=== PATIENT | male | born 1950 | race Caucasian/White ===

== ENCOUNTER 2024-11-13 13:31 | Outpatient (AMB) | payer MEDICARE, SELFPAY ==
--- OUTSIDE RECORDS SUMMARY | 2023-12-29 06:30 | XMS_ITS ---
Author Name [facility] [facility] [place] Address [address] [place] [address] Care Team Providers Care Shutdown Coordinator Name Role Phone NATALIE OROZCO Primary Care Provider Jed martinez Insurance Providers: All historical and current Section Date Range: From patient's date of to the date document was created. This section includes the names of all active insurance providers for the patient. Insurance Provider Type of Coverage Plan Name Start of Policy Coverage End of Policy Coverage Group Number Member ID Insurance Provider's Telephone Number Policy Lang's Name Patient's Relationship to Policy Lang MEDICARE (WNR) MEDICARE (M) PART A Nov 20, 2017 PART A [id number] DALTON ROSE OMAS PATIENT MEDICARE (WNR) MEDICARE (M) PART B Nov 20, 2017 PART B [id number] MILTON, OMAS PATIENT Selected Encounter This section includes the information on record at [place] for the Encounter. Date/Time Encounter Type Encounter Description Reason Provider Source Dec 29, 2023 10:30 AM COMPRE OPH EXAM EST PT 1/> OPTOMETRY ICD-10-CM E11.9 Type 2 diabetes mellitus without complications KAYLEIGH WILLIAM Encounter Template Text not used by [place] Assessments - Encounter Diagnoses This section includes the primary and secondary diagnoses documented for the Encounter. Date/Time Primary/Secondary Diagnosis Diagnosis Name Provider Source Dec 29, 2023 10:13 AM PRIMARY Type 2 diabetes mellitus without complications KRISTOFERRICARDOPopeyeKAYLEIGH Martinez [facility] Dec 29, 2023 10:13 AM SECONDARY Presence of intraocular lens KAYLEIGH WILLIAM [facility] Plan of Treatment: Future Appointments (+ 6 months) and Future Tests (+/- 45 days) The Plan of Treatment section includes future care activities for the patient from all [place] treatmentfacilities. This section includes future appointments and future orders which are active, pending or scheduled. Future Appointments This section includes appointments that were scheduled to occur 6 months from the date of the Encounter, up to a maximum of 20 appointments. The data comes from all [place] treatment facilities. Appointment Date/Time Appointment Type Appointme nt Facility Name Jan 10, 2024 08:30 AM AMBULATORY - MEDICINE [facility] Mar 31, 2024 10:45 AM AMBULATORY - MEDICINE [facility] Jun 13, 2024 10:00 AM AMBULATORY MEDICINE [facility] Jun 23, 2024 03:30 PM AMBULATORY - MEDICINE [facility] Lab Results: +/- 30 days of the encounter This section includes the Chemistry and Hematology Lab Results on record with [place] for the patient. Radiology Reports and Pathology Reports are provided separately, in subsequent sections. Lab Results This section contains the Chemistry/Hematology Results that were resulted 30 days before or 30 daysafter the date of the Encounter. Date/Time Source Result Type Result - Unit Interpretation Reference Range Specimen Type Comment Nov 30, 2023 11:16 AM [place] COVID-19 FLU/RSV DIAGNOSTIC PANEL NASOPHARYNX Specimen Type: NASOPHARYNX Comment: This test is authorized for emergency use only. False negative results may occur if virus is present at levels below the analytical limit of detection.Negat dustin results do not preclude SARS-CoV-2, influenza or RSV infection and should not be used as the sole basis for treatment or other patient management decisions.Cephe id FLUVID: HCPs: https://www.fda .gov/media/7622 35/download. Patients: https://www.fda .gov/media/9215 36/download Ordering Provider: NATALIE OROZCO Report Released Date/Time: Nov 30, 2023 11:08 AM Reporting Lab: [address] [address] Performing Lab: [address] [address] COVID-19 PCR (FLUVID) POSITIVE HH NEGATIVE FLU A PCR (FLUVID) NEGATIVE FLU B PCR (FLUVID) NEGATIVE RSV PCR (FLUVID) NEGATIVE Nov 30, 2023 11:16 AM [place] SARS-COV-2 VARIANT SEQ PNL([facility]) NASOPHARYNX Specimen Type: NASOPHARYNX Comment: -Pangolin version 4.3.1 (data version ) -Nextclade version 3.8.2 (data version 2023-10-06) https://www.cdc.gov/coronavirus/2019-ncov/cases-updates/variant- surveillance/variant-info.html The [employer]ctors SARS CoV 2 No Chains Research Assay-GX is a next-generation sequencing (NGS) assay that determines the complete genome sequence of the SARS-CoV-2 virus. The assay contains variant-tolerant primers to broaden and improve the coverage for variant detection and increase the sensitivity of the panel to enable detection from lower viral titer samples. The assay is run on the PriceMatch Sequencer, which performs automated library preparation, sequencing, analysis, and reporting. The sequence analysis includes determination of viral phylogenetic lineage by comparison to the reference strain Wu[place]-Hu-1, GenBank: [id number]. Sequence determination may not be possible owing to inadequate quantity or quality of the viral RNA in the original specimen. Sequencing will not be attempted if the SARS-CoV-2 PCR assay result has a Ct > 30. Note that phylogenetic lineage assignment in some cases may change management coordinator time for the same sequence as the virus continues to evolve and new sub lineages are created. The reported result will reflect the lineage assignment only at the time of initial sequence determination. This test was developed, and its performance characteristics determined by the [facility], which is certified under the Clinical Laboratory Improvement Amendments (CLIA) as qualified to perform high complexity clinical laboratory testing. This test is validated for clinical use at [facility] and should not be regarded as investigational or for research. The FDA does not require this test to go through premarket FDA review, and therefore it has not been cleared or approved by the FDA. This report was reviewed and approved by the on-service pathologist. Ordering Provider: NATALIE OROZCO Report Released Date/Time: Jan 13, 2024 09:27 AM Reporting Lab: [facility] [address] [facility] [address] Performing Lab: [facility] [address] [facility] [address] SARS-COV-2 Lineage([facility]) KP.3.1.1 SARS-COV-2 Clade([facility]V) 24C (Omicron) Social History: Smoking Status (Most current) and Tobacco Use (All prior to encounter date) This section includes the most current, and the historical, smoking and tobacco- related health factors from the [place] facility where the Encounter took place. Current Smoking Status This section includes the most current smoking, or tobacco-related health factor, from the [place] facility where the Encounter took place. Date/Time Current Smoking Status Comment [facility] Oct 28, 2020 03:45 PM VA-TOBACCO FORMER USER [facility] Tobacco Use History This section includes a history of the smoking, or tobacco-related health factors, that were collected on or before the date of the Encounter. The data comes from the [place] facility where the Encounter took place. Date/Time Smoking Status/Tobac co Use Comment Facility Oct 28, 2020 03:45 PM VA-TOBACCO QUIT 15 YRS OR MORE [facility] Aug 25, 2016 11:16 AM QUIT TOBACCO USE > 7 YEARS AGO 03/22/74 [facility] Nov 15, 2001 02:54 PM QUIT TOBACCO USE > 7 YEARS AGO quitted 20 years ago [facility] Nov 15, 2001 02:36 PM HISTORY OF SMOKING Quit in 1974 [facility] Nov 15, 2001 02:36 PM QUIT TOBACCO USE > 7 YEARS AGO Quit in 1974 [facility] Advance Directives: All historical and current Section Date Range: From patient's date of to the date document was created. This section includes ALL of a patient's completed or amended [place] Advance and Rescinded Directives. The entries below indicate that a directive exists for the patient, but an actual copy is not included with this document. The data comes from all [place] facilities. Date Advance Directives Provider Source Aug 27, 2016 ADVANCE DIRECTIVE CARSON OLSON Encounter Notes: All associated encounter notes This section contains the clinical notes associated to the Encounter. Date/Time Encounter Note(s) Provider Source Dec 29, 2023 08:24 AM OPTOMETRY NOTE: LOCAL TITLE: OPTOMETRY NOTE(T) STANDARD TITLE: OPTOMETRY NOTE DATE OF NOTE: DEC 29, 2023@08:24 ENTRY DATE: DEC 29, 2023@08:24:05 AUTHOR: BERNARDO WILLIAM COSIGNER: URGENCY: STATUS: COMPLETED Active Problems: Active Problem Chronic kidney disease N18.9 02/10/2021 NATALIE OROZCO History of hepatitis C R69. 02/14/2018 NATALIE OROZCO Primary Care Physician R69. 02/17/2017 NATALIE OROZCO Microalbuminuria due to type 2 diab 08/27/2016 NATALIE OROZCO Onychomycosis of toenails R69. 08/27/2016 NATALIE OROZCO Diabetic retinopathy R69. 08/27/2016 NATALIE OROZCO History of tobacco use R69. 08/27/2016 NATALIE OROZCO Colonoscopy Screening R69. 08/27/2016 NATALIE OROZCO Vitamin D deficiency E55.9 09/17/2016 NATALIE OROZCO Coronary artery disease I25.10, Ons 08/06/2021 NATALIE OROZCO Automatic implantable cardiac defib 08/27/2016 NATALIE OROZCO Ischemic cardiomyopathy R69. 08/27/2016 NATALIE OROZCO History of male erectile disorder N 08/27/2016 NATALIE OROZCO Hypertension I10. 08/27/2016 NATALIE OROZCO Diabetes mellitus type 2 E11.8 11/17/2016 NATALIE OROZCO Mixed hyperlipidemia E78.2 08/27/2016 NATALIE OROZCO Obesity E66.9 09/17/2016 NATALIE OROZCO Medications ([facility]): Active Outpatient Medications (including Supplies): Active Non-VA Medications Status 1) Non-VA APIXABAN 5MG TAB 5MG BY MOUTH EVERY 12 HOURS ACTIVE 2) Non-VA ASPIRIN 81MG EC TAB 81MG BY MOUTH EVERY DAY ACTIVE 3) Non-VA ATORVASTATIN CALCIUM 80MG TAB 40MG BY MOUTH AT ACTIVE BEDTIME 4) Non-VA CHOLECALCIF 25MCG (D3-1,000UNIT) TAB 25MCG BY ACTIVE MOUTH ONCE DAILY 5) Non-VA DULAGLUTIDE 1.5MG/0.5ML INJ PEN 1.5MG ACTIVE SUBCUTANEOUSLY ONCE A WEEK 6) Non-VA FENOFIBRATE 54MG TAB 54MG BY MOUTH ACTIVE 7) Non-VA FISH OIL 500MG DHA/EPA CAP,ORAL 1200MG BY ACTIVE MOUTH ONCE DAILY 8) Non-VA GLIPIZIDE 5MG TAB 5MG BY MOUTH TWICE DAILY ACTIVE 9) Non-VA KETOCONAZOLE 2% CREAM THIN LAYER TOPICALLY ACTIVE TWICE DAILY 10) Non-VA METFORMIN HCL 1000MG TAB 1000MG BY MOUTH TWICE ACTIVE DAILY 11) Non-VA METOPROLOL SUCCINATE 50MG SA TAB 50MG BY MOUTH ACTIVE ONCE DAILY 12) Non-VA OTHER CAP/TAB IMMUNOTHERAPY MONTHLY ACTIVE 13) Non-VA SACUBITRIL 49MG/VALSARTAN 51MG TAB 1 TABLET BY ACTIVE MOUTH TWICE DAILY Allergies: Patient has answered NKA S: 73-year-old male is in for comprehensive exam with a history of type 2 diabetes without ocular manifestations and CE with PCL OU. He wears reading glasses only now and denies any eye injury or disease since his last exam. KAYA: 11/27/2021 (-) Pain: (-) REAL: (-) Diplopia: (-) Flashes: (-) Floaters: (-) Amaurosis Fugax/Tia's: (-) Eye Injury: (+) Eye Surgery: CE with PCIOL OD (-) TBI O: Visual acuity without correction was 20/20 slow both eyes. Pupils were equal and round and reactive to light with no afferent defect. Extraocular muscles were intact and facial confrontation mann were full. Lids and lashes were clear both eyes with verruca at 530 left lower lid. Corneas and conjunctiva were clear both eyes. Anterior chambers were deep clear and quiet with open angles. Iris was flat both eyes without neovascularization. Posterior chamber lenses were in place and clear OU. Subjective Refraction: OD: pl - 0.50 x 090 20/20 OS: PL sphere 20/20 slow Add: + 2.25 sph 20/20 Intraocular pressures at 10 AM were 14 mmHg OU. Dilating Drops: 1GTT 1 % Tropicamide OU & 1GTT 2.5% Phenylephrine OU (Pt. ed. on side effects, dilation warning given and verbal consent obtained) Patient advised not to drive if they feel they have any symptoms which could affect their ability to drive safely. Patient advised not to engage in any activities which could put themselves or others at risk if they feel they have any symptoms which could affect their ability to perform those activities safely. Vitreous was clear OU. Approximately 40% horizontal and vertical cupping was seen OU with healthy rims and margins and no neovascularization. Normal pigmentary architecture of the macula was seen without lipid or edema. Small intraretinal hemorrhage was seen adjacent to the fovea OS. A two third artery to vein ratio was seen. Retinal peripheries were intact in all quadrants OU. A: Small hemorrhage adjacent to the fovea OS. History of diabetes with mild nonproliferative diabetic retinopathy. Pseudophakia OU. P: Ordered new KYO Ordered consult to [facility] for OS hemorrhage. The patient will return in 12 months or sooner if any problems arise. [place] Education: After discussion and answering all 's questions, demonstrated and verbalized understanding of diagnosis and treatment. Yes [x] No [ ] Patient Education: Diabetes: Patient was educated regarding diabetes and related ocular complications including retinopathy and cataract formation as well as other related systemic complications. The importance of good blood sugar control, blood sugar testing as recommended by their PCP and the importance of timely follow up were all emphasized. Medication Reconciliation: Outpatient: Has the patient been taking medications as documented in the EMLR? YES: The patient has been taking medications as documented in the EMLR. Essential Medication List for Review used to complete this medication reconciliation. INCLUDED IN THIS LIST: Alphabetical list of active outpatient prescriptions dispensed from this [facility] (local) and dispensed from another [facility] or [facility] facility (remote) as well as inpatient orders (local, pending and active), local clinic medications, locally documented non-VA medications, and local prescriptions that have or been discontinued in the past 90 days. - All changes in medications, including all non-VA/Herbal/OTC medications were entered into CPRS. - If there were any medications the patient should no longer take, they were discontinued. - The patient/caregiver was instructed to update this list, discard old lists, and take this list to the next appointment, whether with a VA or non-VA provider. /tommy/ BERNARDO WILLIAM OD STAFF TRANSITIONAL STUDIES INSTRUCTOR Signed: 12/29/2023 10:58 BERNARDO WILLIAM CNTRL [facility]
--- OUTSIDE RECORDS SUMMARY | 2024-06-13 06:00 | XMS_ITS | Encounter Summary ---
Author Name [facility] [facility] [place] Address [address] [place] [id number] Care Team Providers Care Conservation Specialist Name Role Phone NATALIE OROZCO Primary Care Provider Unavailabl e Insurance Providers: All historical and current Section [...] PART A Nov 20, 2017 PART A [id number] [place] PATIENT MEDICARE (WNR) MEDICARE (M) PART B Nov 20, 2017 PART B [id number] [place] ROSE OMAS PATIENT Selected Encounter This section includes the information on record at [place] for the Encounter. Date/Time Encounter Type Encounter Description Reason Provider Source Jun 13, 2024 10:00 AM OFFICE O/P EST LOW 20 MIN PRIMARY CARE/MEDICINE ICD-10-CM I10 Essential (primary) hypertension NATALIE OROZCO Encounter Template Text not used by [facility] Assessments - Encounter Diagnoses This section includes the primary and secondary diagnoses documented for the Encounter. Date/Time Primary/Secondary Diagnosis Diagnosis Name Provider Source Jun 13, 2024 10:13 AM PRIMARY Essential (primary) hypertension NATALIE OROZCO [facility] Plan of Treatment: Future Appointments (+ 6 months) and Future Tests (+/- 45 days) The Plan of Treatment section includes future care activities for the patient from all [place] [facility]. This section includes future appointments and future orders which are active, pending or scheduled. Future Appointments This section includes appointments that were scheduled to occur 6 months from the date of the Encounter, up to a maximum of 20 appointments. The data comes from all [place] treatment facilities. Appointment Date/Time Appointment Type Appointme nt Facility Name Jun 23, 2024 03:30 PM AMBULATORY - MEDICINE [facility] Jul 13, 2024 09:00 AM [facility] Social History: Smoking Status (Most current) and Tobacco Use (All prior to encounter date) This section includes the most current, and the historical, smoking and tobacco- related health factors from the [place] facility where the Encounter took place. Current Smoking Status This section includes the most current smoking, or tobacco-related health factor, from the [place] facility where the Encounter took place. Date/Time Current Smoking Status Comment Facil ity Jun 13, 2024 10:00 AM [place]-TOBACCO NEVER USED CIGARETTES [facility] Tobacco Use History This section includes a history of the smoking, or tobacco-related health factors, that were collected on or before the date of the Encounter. The data comes from the [place] facility where the Encounter took place. Date/Time Smoking Status/Tobacco Use Comment F acility Jun 13, 2024 10:00 AM [place]-TOBACCO NEVER USED OTHER TYPE [facility] Jun 14, 2023 10:00 AM VA-TOBACCO FORMER USER [facility] Jun 14, 2023 10:00 AM [place]-TOBACCO QUIT 15 YRS OR MORE [facility] Jun 18, 2022 11:00 AM VA-TOBACCO FORMER USER [facility] Jun 18, 2022 11:00 AM VA-TOBACCO QUIT 15 YRS OR MORE [facility] Oct 15, 2017 11:45 AM VA-TOBACCO FORMER USER [facility] Oct 15, 2017 11:45 AM [place]-TOBACCO QUIT 15 YRS OR MORE [facility] Advance Directives: All historical and current Section Date Range: From patient's date of to the date document was created. This section includes ALL of a patient's completed or amended [place] Advance and Rescinded Directives. The entries below indicate that a directive exists for the patient, but an actual copy is not included with this document. The data comes from all [place] facilities. Date Advance Directives Provider Source Aug 27, 2016 ADVANCE DIRECTIVE CARSON OLSON Encounter Notes: All associated encounter notes This section contains the clinical notes associated to the Encounter. Date/Time Encounter Note(s) Provider Source Jun 13, 2024 10:08 AM PREVENTIVE MEDICIN E NURSING NOTE: LOCAL TITLE: CLINICAL REMINDERS/NURSING STANDARD TITLE: PREVENTIVE MEDICINE NURSING NOTE DATE OF NOTE: JUN 13, 2024@10:08 ENTRY DATE: JUN 13, 2024@10:08:04 AUTHOR: GUANAKO GEORGES COSIGNER: URGENCY: STATUS: COMPLETED Advance Directive Screen MH AD: Patient has an Advance Directive on file at this [facility]. No updates are needed at this time. The patient received education about Advance Directives and written notification of his/her rights. Suicide Screen: C-SSRS Screening [place] Suicide Severity Rating Scale (C-SSRS) screener 1. Over the past month, have you wished you were or wished you could go to sleep and not wake up? No 2. Over the past month, have you had any actual thoughts of killing yourself? No 3. Over the past month, have you been thinking about how you might do this? Response not required due to responses to other questions. 4. Over the past month, have you had these thoughts and had some intention of acting on them? Response not required due to responses to other questions. 5. Over the past month, have you started to work out or worked out the details of how to kill yourself? Response not required due to responses to other questions. 6. If yes, at any time in the past month did you intend to carry out this plan? Response not required due to responses to other questions. 7. In your lifetime, have you ever done anything, started to do anything, or prepared to do anything to end your life (for example, collected pills, obtained a gun, gave away valuables, went to the roof but didn't jump)? No 8. If YES, was this within the past 3 months? Response not required due to responses to other questions. Homelessness/Food Insecurity Screen: In the past 2 months, have you been living in stable housing that you own, rent, or stay in as part of a household? Yes - Living in stable housing. Are you worried or concerned that in the next 2 months you may NOT have stable housing that you own, rent, or stay in as part of a household? No - Not worried about housing near future The reports the following: Within the past 12 months, you worried whether your food would run out before you got money to buy more. Never true Within the past 12 months, the food you bought just didn't last and you didn't have money to get more. Never true Depression Screening: Perform PHQ-2 A PHQ-2 screen was performed. The score was 0 which is a negative screen for depression. Over the past two weeks, how often have you been bothered by the following problems? 1. Little interest or pleasure in doing things Not at all 2. Feeling down, depressed, or hopeless Not at all Tobacco Use Screening: The patient has never smoked cigarettes. The patient has never used other types of tobacco. Alcohol Use Screen (AUDIT-C): Alcohol Screen: SCREEN FOR ALCOHOL (AUDIT-C) An alcohol screening test (AUDIT-C) was negative (score=0). 1. How often did you have a drink containing alcohol in the past year? Consider a drink to be a 12 ounce can or bottle of regular beer, 8 ounces of malt liquor, a 5 ounce glass of table wine, or a 1.5 ounce shot of liquor (like scotch, gin, or vodka). Never 2. How many drinks containing alcohol did you have on a typical day when you were drinking in the past year? Response not required due to responses to other questions. 3. How often did you have six or more drinks on one occasion in the past year? Response not required due to responses to other questions. COVID-19 Immunization: Refused Moderna Monovalent COVID-19 vaccine Immunization: COVID-19 (MODERNA), MRNA, LNP-S, PF, 50 MCG/0.5 ML (AGES 12+ YEARS) Refusal Reason: PATIENT DECISION Patient refuses all immunization(s) in the COVID-19 group Date Documented: 06/13/24 10:11 RSV Immunization: Respiratory Syncytial Virus (RSV) Vaccine: Refused organgir.am (Abrysvo, RSVpreF vaccine). Immunization: RSV, BIVALENT, PROTEIN SUBUNIT RSVPREF, DILUENT RECONSTITUTED, 0.5 ML, PF Refusal Reason: PATIENT DECISION Patient refuses all immunization(s) in the RSV group Date Documented: 06/13/24 10:11 Sexual Orientation: The patient thinks of their sexual orientation as: Straight or Heterosexual RHS Screen: RHS Screen Session Format: Face to Face Environmental Check Upon inquiry, the individual reports that the environment is safe to proceed. Informed Consent to Screen and Document The individual consents to proceed with screening. The individual consents to documentation of responses. PRIMARY SCREEN: In the past 12 months, how often did a current or former intimate partner (e.g., boyfriend, girlfriend, , , sexual partner): 1. Scream or curse at you Never 2. Insult or talk down to you Never 3. Threaten you with harm Never 4. Physically hurt you Never 5. Force or pressure you to have sexual contact against your will, or when you were unable to say no Never The HITS tool (items 1-4 above) is [place] copyright protected by Albert Galdamez MD, and the user has full rights to use it throughout the [place] system. PRIMARY SCREEN RESULT: The Primary Screen is NEGATIVE. The individual answered never to all forms of IPV above (i.e., answered never to all 5 items) The individual accepts education and/or resources: No EDUCATION: The individual indicated readiness to learn. Education offered during this session as noted above. The individual indicated understanding by asking relevant questions and making appropriate comments. No barriers to learning were observed or identified. PAVE Foot Check: A complete foot check was completed at this encounter. VISUAL INSPECTION: Includes inspection for skin breaks, deformity, erythema, trauma, pallor on elevation, dependent rubor, nail deformities, extensive callus and pitting edema. Visual exam results: Normal PEDAL PULSES: Includes palpation of dorsalis and posterior tibial pulses and signs/symptoms of vascular compromise like pain, pallor, parasthesia or paralysis. Present (even if diminished) SENSORY CHECK: Includes 10 gram Monofilament ([place]) test of sensation. Intact (Greater than or equal to 80% of sites checked) Abnormal (Less than 80% of sites checked): Intact LOW-RISK: LOW RISK INFORMATION PROVIDED: 1. Advised patient not to walk barefoot. 2. Explained the importance of daily foot checks for changes. 3. Stressed the importance of daily foot hygiene, including bathing and complete drying. The patient verbalized understanding and was offered a detailed handout on diabetic foot care. /tommy/ GUANAKO GEORGES LPN PACT 10 Signed: 06/13/2024 10:12 GUANAKO GEORGES Jun 13, 2024 05:59 AM PHYSICIAN NOTE: LOCAL TITLE: MD NOTE STANDARD TITLE: PHYSICIAN NOTE DATE OF NOTE: JUN 13, 2024@05:59 ENTRY DATE: JUN 13, 2024@05:59:43 AUTHOR: NATALIE OROZCO EXP COSIGNER: URGENCY: STATUS: COMPLETED HISTORY OF PRESENT ILLNESS: LESLY ROSE is a 73 yo MALE who presents at the [facility] for his annual visit. He maintains a nonVA PCP: Dr Shannon in [place]. He utilizes optometry, podiatry, and pharmacy services at the [place]. NonVA Providers: Cardiology: Dr Winchester Endocrine: [facility] Crossword Puzzle Maker: Dr Oconnor Opthalmology: Dr Shaffer Active problems - Computerized Problem List is the source for the followin. Chronic kidney disease 2. History of hepatitis C 3. Primary Care Physician 4. Microalbuminuria due to type 2 diabetes mellitus 5. Onychomycosis of toenails 6. Diabetic retinopathy 7. History of tobacco use 8. Colonoscopy Screening 9. Vitamin D deficiency 10. Coronary artery disease 11. Automatic implantable cardiac defibrillator in situ 12. Ischemic cardiomyopathy 13. History of male erectile disorder 14. Hypertension 15. Diabetes mellitus type 2 16. Mixed hyperlipidemia 17. Obesity The following VA and Non-VA meds were reconciled with patient: Active Outpatient Medications (including Supplies): Start Date Active Non-VA Medications Status Stop Date 1) Non-VA APIXABAN 5MG TAB SiMG BY MOUTH ACTIVE EVERY 12 HOURS 2) Non-VA ASPIRIN 81MG EC TAB SiMG BY ACTIVE MOUTH EVERY DAY 3) Non-VA ATORVASTATIN CALCIUM 80MG TAB Sig: ACTIVE 40MG BY MOUTH AT BEDTIME 4) Non-VA CHOLECALCIF 25MCG (D3-1,000UNIT) TAB ACTIVE SiMCG BY MOUTH ONCE DAILY 5) Non-VA DULAGLUTIDE 1.5MG/0.5ML INJ PEN Sig: ACTIVE 1.5MG SUBCUTANEOUSLY ONCE A WEEK 6) Non-VA FENOFIBRATE 54MG TAB SiMG BY ACTIVE MOUTH 7) Non-VA FISH OIL 500MG DHA/EPA CAP,ORAL Sig: ACTIVE 1200MG BY MOUTH ONCE DAILY 8) Non-VA GLIPIZIDE 5MG TAB SiMG BY MOUTH ACTIVE TWICE DAILY 9) Non-VA KETOCONAZOLE 2% CREAM Sig: THIN LAYER ACTIVE TOPICALLY TWICE DAILY 10) Non-VA METFORMIN HCL 1000MG TAB SiMG ACTIVE BY MOUTH TWICE DAILY 11) Non-VA METOPROLOL SUCCINATE 50MG SA TAB Sig: ACTIVE 50MG BY MOUTH ONCE DAILY 12) Non-VA OTHER CAP/TAB Sig: IMMUNOTHERAPY ACTIVE MONTHLY 13) Non-VA SACUBITRIL 49MG/VALSARTAN 51MG TAB ACTIVE Si TABLET BY MOUTH TWICE DAILY Indication: FOR CHRONIC HEART FAILURE ALLERGIES: ========= Patient has answered NKA HISTORY: PERIOD OF SERVICE - Zw[facility] FROM Apr TO Jun COMBAT SERVICE INDICATED: No VITAL SIGNS: Blood Pressure 130/84 (06/13/2024 10:07) Pulse 86 (06/13/2024 10:07) Respiration 18 (06/13/2024 10:07) Pulse Oximetry 96% (06/13/2024 10:07) Temperature 97.9 F [36.6 C] (06/13/2024 10:07) Pain 0 (06/13/2024 10:07) Height 71 in [180.3 cm] (06/13/2024 10:07) Weight 210.4 lb [95.44 kg] (06/13/2024 10:07) BMI BMI: 29.4 REVIEW OF SYSTEMS: CARDIOVASCULAR: No chest pain, no palps RESPIRATORY: No SOB, no wheezing GASTROINTESTINAL: No abd pain, no N/V/D MUSCULOSKELETAL: No joint pain NEUROLOGIC: No H/A, no weakness EXAMINATION: GENERAL: WD/WN in NAD HEENT: Moist mucosa NECK: Supple HEART: RRR, S1-S2, no murmurs LUNGS: CTA B/L ABDOMEN: Soft, NT/ND EXTREMITIES: FROM x 4 NEUROLOGIC: AAO x3, no FF's PSYCHIATRIC: Good eye contact ASSESSMENT/PLAN: 1. CAD s/p [place] w/CABG x 2 in 2005: managed by Dr Winchester, on BB, statin, & ASA 2. Defibrillator Present: due to VT, implanted 06/29/16 - managed by cardio 3. CHF: on entresto 49mg/51mg BID, managed by cardio 4. Hypertension: well controlled on metoprolol succinate 50mg/day and spironolactone 12.5mg/QAM 5. Mixed Hyperlipidemia: on atorvastatin 40mg QHS, tricor 54mg/day, and fish oil 1 cap/day 6. DM Type 2 on insulin: on metformin 1000mg BID, glipizide 5mg BID, and dulaglutide 1.5mg SC wkly, managed by [facility] Podiatry exam: 2023 - Dr Pena Eye Exam: 2023 - Dr Shaffer - + Microalbuminuria: 2023 - performed by nonVA PCP 7. CKD III: stable, managed by nonVA PCP 8. Diabetic Retinopathy: managed by Dr Shaffer 9. Colonoscopy Screening: managed by his nonVA PCP FOLLOW UP 1 year - Annual - vet to bring PCP labs ========= UPCOMING APPOINTMENTS: 12/26/2024 10:30 [facility] OPTOMETRY 4 No barriers; Patient understands and agrees to current treatment plan. If pt has any questions, concerns, or changes in current health status he/she will call or come in to the [facility]. Assess Statin Use - Lipids (CVD/DM): The patient is still taking the NON-VA statin medication as documented. Follow Up Colonoscopy: Colonoscopy is due based on information available to this reminder. Patient has arranged or is choosing to arrange a Colonoscopy independent of and w/out assistance from this [place]. Hemoglobin A1C: Patient declines Hemoglobin A1C testing at this time. Diabetes: Kidney Health Evaluation: Last eGFR: EGFR No data available for: eGFR(CKD-EPI 2020) eGFR Last uACR: No uACR found within the past year eGFR and uACR (estimated Glomerular Filtration Rate and Urine Albumin-Creatinine Ratio)* Patient declines having lab(s) done Medication Reconciliation: Outpatient: Has the patient been taking medications as documented in the EMLR? YES: The patient has been taking medications as documented in the EMLR. Essential Medication List for Review used to complete this medication reconciliation. INCLUDED IN THIS LIST: Alphabetical list of active outpatient prescriptions dispensed from this [place] (local) and dispensed from another [place] or [facility] facility (remote) as well as inpatient orders [...] whether with a VA or non-VA provider. JLV Link Data on this list may not be complete. Please check TransfercarV. Allergies/ADRs (Tool #5) FACILITY ALLERGY/ADR -------- No Remote Allergy/ADR Data available for this patient [facility] [place] [facility] No Known Allergies Med Recon [place] (Tool #1) INCLUDED IN THIS LIST: Alphabetical list of active outpatient prescriptions dispensed from this [place] (local) and dispensed from another [place] or [facility] facility (remote) as well as inpatient orders (local pending and active), local clinic medications, locally documented non-VA medications, and local prescriptions that have or been discontinued in the past 90 days. Non-VA Meds Last Documented On: Jun 14, 2023 NOTE The display of VA prescriptions dispensed from another [place] or [facility] facility (remote) is limited to active outpatient prescription entries matched to National Drug File at the originating site and may not include some items such as investigational drugs, compounds, etc. NOT INCLUDED IN THIS LIST: Medications self-entered by the patient into personal health records (i.e. [employer]) are NOT included in this list. Non-VA medications documented outside this [place], remote inpatient orders (regardless of status) and remote clinic medications are NOT included in this list. The patient and provider must always discuss medications the patient is taking, regardless of where the medication was dispensed or obtained. ------ Non-VA APIXABAN 5MG TAB TAKE ONE TABLET BY MOUTH EVERY 12 HOURS Non-VA medication not recommended by VA provider. Non-VA ASPIRIN 81MG EC TAB TAKE ONE TABLET BY MOUTH EVERY DAY Non-VA ATORVASTATIN CALCIUM 80MG TAB TAKE ONE-HALF TABLET BY MOUTH AT BEDTIME Medication prescribed by Non-VA provider. Non-VA CHOLECALCIF 25MCG (D3-1,000UNIT) TAB TAKE ONE TABLET BY MOUTH ONCE DAILY Non-VA medication not recommended by VA provider. Non-VA DULAGLUTIDE 1.5MG/0.5ML INJ PEN INJECT 1.5MG SUBCUTANEOUSLY ONCE A WEEK Patient wants to buy from Non-VA pharmacy. Medication prescribed by Non-VA provider. Non-VA FENOFIBRATE 54MG TAB TAKE ONE TABLET BY MOUTH Non-VA medication not recommended by VA provider. Non-VA FISH OIL 500MG DHA/EPA CAP,ORAL TAKE 1200MG BY MOUTH ONCE DAILY Non-VA medication not recommended by VA provider. Medication prescribed by Non-VA provider. Non-VA GLIPIZIDE 5MG TAB TAKE ONE TABLET BY MOUTH TWICE DAILY Non-VA medication not recommended by VA provider. Non-VA KETOCONAZOLE 2% CREAM APPLY A THIN LAYER TOPICALLY TWICE DAILY Non-VA medication not recommended by VA provider. Non-VA METFORMIN HCL 1000MG TAB TAKE ONE TABLET BY MOUTH TWICE DAILY Medication prescribed by Non-VA provider. Non-VA METOPROLOL SUCCINATE 50MG SA TAB TAKE ONE TABLET BY MOUTH ONCE DAILY Medication prescribed by Non-VA provider. Non-VA OTHER CAP/TAB TAKE IMMUNOTHERAPY IM MONTHLY DR Oconnor in [place]. Non-VA SACUBITRIL 49MG/VALSARTAN 51MG TAB TAKE ONE TABLET BY MOUTH TWICE DAILY Non-VA medication not recommended by VA provider. Medication prescribed by Non-VA provider. Indication: FOR CHRONIC HEART FAILURE ------ SUPPLIES ------ /tommy/ NATALIE OROZCO MD Primary Care Physician Signed: 06/13/2024 10:26 NATALIE OROZCO [facility]
--- OUTSIDE RECORDS SUMMARY | 2024-06-23 11:30 | XMS_ITS | Encounter Summary ---
Author Name [facility] [facility] [place] Address [address] [place] [id number] Care Team Providers Care Dental Mechanic Name Role Phone NATALIE OROZCO Primary Care [...] PART A Nov 20, 2017 PART A [id number] [facility] PATIENT MEDICARE (WNR) MEDICARE (M) PART B Nov 20, 2017 PART B [id number] [facility] PATIENT Selected Encounter This section includes the information on record at [place] for the Encounter. Date/Time Encounter Type Encounter Description Reason Provider Source Jun 23, 2024 03:30 PM OFFICE O/P EST LOW 20 MIN PODIATRY ICD-10-CM L60.3 Nail dystrophy BLAKE ARROYO Encounter Template Text not used by [facility] Assessments - Encounter Diagnoses This section includes the primary and secondary diagnoses documented for the Encounter. Date/Time Primary/Secondary Diagnosis Diagnosis Name Provider Source Jun 23, 2024 04:00 PM PRIMARY Nail dystrophy BLAKE ARROYO [place] Jun 23, 2024 04:00 PM SECONDARY Pain in left toe(s) BLAKE ARROYO [place] Jun 23, 2024 04:00 PM SECONDARY Pain in right toe(s) BLAKE ARROYO [place] Jun 23, 2024 04:00 PM SECONDARY Type 2 diabetes w diabetic peripheral angiopath w/o gangrene BLAKE ARROYO [place] Plan of Treatment: Future Appointments (+ 6 months) and Future Tests (+/- 45 days) The Plan of Treatment section includes [facility] care activities for the [facility] [place] [facility] This section includes future appointments and future orders which are active, pending or scheduled. Future Appointments This section includes appointments that were scheduled to occur 6 months from the date of the Encounter, up to a maximum of 20 appointments. The data comes from all [place] treatment facilities. Appointment Date/Time Appointment Type Appointme nt Facility Name Jul 13, 2024 09:00 AM [place] [facility] Social History: Smoking Status (Most current) and Tobacco Use (All prior to encounter date) This section includes the most current, and the historical, smoking and tobacco- related health factors from the [place] facility where the Encounter took place. Current Smoking Status This section includes the most current smoking, or tobacco-related health factor, from the [place] facility where the Encounter took place. Date/Time Current Smoking Status Comment Palomo hoover Jun 13, 2024 10:00 AM VA-TOBACCO NEVER USED CIGARETTES [place] Tobacco Use History This section includes a history of the smoking, or tobacco-related health factors, that were collected on or before the date of the Encounter. The data comes from the [place] facility where the Encounter took place. Date/Time Smoking Status/Tobacco Use Comment F acility Jun 13, 2024 10:00 AM VA-TOBACCO NEVER USED OTHER TYPE [place] Jun 14, 2023 10:00 AM VA-TOBACCO FORMER USER [place] Jun 14, 2023 10:00 AM VA-TOBACCO QUIT 15 YRS OR MORE [place] Jun 18, 2022 11:00 AM VA-TOBACCO FORMER USER [place] Jun 18, 2022 11:00 AM VA-TOBACCO QUIT 15 YRS OR MORE [place] Oct 15, 2017 11:45 AM VA-TOBACCO FORMER USER [place] Oct 15, 2017 11:45 AM VA-TOBACCO QUIT 15 YRS OR MORE [place] Advance Directives: All historical and current Section Date Range: From patient's date of to the date document was created. This section includes ALL of a patient's completed or amended [place] Advance and Rescinded Directives. The entries below indicate that a directive exists for the patient, but an actual copy is not included with this document. The data comes from all [place] facilities. Date Advance Directives Provider Source Aug 27, 2016 ADVANCE DIRECTIVE CARSON OLSONTRACY Pablo Encounter Notes: All associated encounter notes This section contains the clinical notes associated to the Encounter. Date/Time Encounter Note(s) Provider Source Jul 03, 2024 09:04 AM LETTERS: LOCAL TITLE: PATIENT LETTER (B) STANDARD TITLE: LETTERS DATE OF NOTE: JUL 03, 2024@09:04 ENTRY DATE: JUL 03, 2024@09:04:32 AUTHOR: ALEJANDRINA TYSON COSIGNER: URGENCY: STATUS: COMPLETED [facility] [address] [place] [address] [phone] * [phone] * [address] [address] Date: JUL 03, 2024 Dear Irvine: This is a reminder letter that your SHOES are ready for pick at the [facility] located at [address] [place] [address]. You may picker / packer your shoes and or orthotics at your convenience any day, Wednesday through Wednesday between 8:30am and 3:30pm. You do not need an appointment. BUT WE DO REQUEST THAT YOU CALL BEFORE ARRIVING TO MAKE SURE THE PODIATRY HEALTH INSTRUCTIONAL FACILITATOR IS AVAILABLE ON THAT DAY. Call [phone] for Alejandrina if you have any questions. We hope to see you soon, Sincerely, Office Staff for:NATALIE OROZCO Care Provider Upcoming Appointments: 12/26/2024 10:30 [facility] 4 06/08/2025 10:00 SPR PACT 10 ALEJANDRINA TABARES [place] Jun 23, 2024 10:01 AM PODIATRY NOTE: LOCAL TITLE: PODIATRY NOTE STANDARD TITLE: PODIATRY NOTE DATE OF NOTE: JUN 23, 2024@10:01 ENTRY DATE: JUN 23, 2024@10:01:04 AUTHOR: BLAKE ARROYO EXP COSIGNER: URGENCY: STATUS: COMPLETED LAST SEEN FOR TREATMENT: 08/08/2019 NOTE: HAS RECEIVED BOTH COVID VACCINE DOSES + BOOSTER AT [facility] S: Pt. is a 73 yo alert WDWN CAUC MALE who is seen for continued podiatric care for treatment of a presenting complaint of painful ingrown toenails (LAST SEEN 08/08/2019). Patient has DM & is at risk of injury with self or other non- professional care. HE THOUGHT HE WAS LAST SEEN2 YEARS AGO AND WAS IN NEED OF A LOWER EXTREMITY EXAM [facility] Location of symptoms are: nails 1-2-3-4-5 BILATERAL Onset of symptoms has been several weeks due to this being a recurrent condition that has been exacerbating over the past few weeks :PLANTAR CONCERNS HAVE RESOLVED WITH INSERTS , SHOES & SOCKS. Duration of symptoms is daily with periods of exacerbation and remission. Description of symptoms is of an aching nature AND EXACERBATED BY FOOTGEAR AND A LACK OF TIMELY ATTENTION. *NOTE: DENIES ANY RECENT CHANGES IN MEDS-SEE RECONCILIATION PERFORMED THIS DATE DENIES TOBACCO *NOTE: A1c = 7.9 (LAST TAKEN: 07/2021) FBS=DNP RISK=2 HEIGHT:212.8 lb [96.7 kg] (09/17/2016 13:43) WEIGHT:71 in [180.3 cm] (09/17/2016 13:43) Active problems - Computerized Problem List is [...] type 2 16. Mixed hyperlipidemia 17. Obesity *NOTE: REVIEWED ABOVE NOTING NEW CONCERN- CHANGES SINCE PREVIOUS VISIT-SEE # 1 ABOVE NOTE: NON-CONTRIBUTORY TO THE CC OTHER THAN THE PRESENCE OF TYPE II DM O: DERMATOLOGICAL: Exam reveals skin color, TEMP & text to be WNL. There is normal distribution of hair noted. Nails are thickened yellow-brown discolored and displaying flakiness, crumbling, sub-ungual debris and rubor in the affected nail grooves. The affected nails are 1-2-3-4-5 bilat. PAIN LEVEL IS 2-3/10 PRIOR TO TREATMENT & 0/10 AFTER. There are no Superficial painful hyperkeratotic lesions noted at this time. VASCULAR: Exam reveals DP & PT pulses to be absent non-palpable bilateral. CFT is <3 sec x 10. There are no superficial varices noted and there is no edema noted. MUSCULOSKELETAL: Exam reveals muscle strength and tone to be equal & symmetrical bilaterally & WNL for an individual of this age and present physical-medical condition. There is pain free ROM at all joints distal to and including the ankle. There is a planus foot type and HAV & tailor's bunions bilat. There is pain on palpation at the medial plantar calcaneal tuberosity bilateral. HE RELATES A NEW PAIN 1ST MPJ LEFT AND HAS BEEN ADVISED THAT THIS IS MOST LIKELY DUE TO AN ARTHREITIC JOINT AND IT IS INTERMITTENT AND NO TREATMENT REQUIRED AT THIS TIME. NEUROLOGICAL: Exam reveals S/D, vibratory, light touch & proprioception sensations to be equal & symmetrical bilaterally & WNL for an individual of this age and present physical-medical status. Protective sensation utilizing a Levant-Komal lOg monofilament is 10/10 bilateral. BIOMECHANICAL: Exam is deferred at this time due to being non-contributory to the cc . 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 P: Treatment consists of debridement-reduction of affected nails utilizing manual and electrical debridement and thinning of the nail plates to the point of imminent bleeding and curetting the nail grooves. All care rendered without complications & the patient is progressing well after podiatric care this date and will return to clinic in 16 weeks if we are on a return to a morer regular schedule. RTC: 10/27/@ TTBD) I DISCUSSED THE FINDINGS & PLAN WITH PATIENT (UNCHANGED SINCE PREVIOUS VISIT) & PATIENT AGREES AND UNDERSTANDS PLAN *DISCUSSED NEW PROTOCOLS AND CALLED MONO TODAY FOR RESCHEDULING Medication Reconciliation: PERFORMED TODAY - SEE BELOW. Outpatient: Has the patient been taking medications as documented in the EMLR? YES: The patient has been taking medications as documented in the EMLR. Essential Medication List for Review used to complete this medication reconciliation. INCLUDED IN THIS LIST: Alphabetical list of active outpatient prescriptions dispensed from this [facility] (local) and dispensed from another [place] or [facility] facility (remote) as well as [...] list may not be complete. Please check JLV. Allergies/ADRs (Tool #5) FACILITY ALLERGY/ADR -------- No Remote Allergy/ADR Data available for this patient [facility] No Known Allergies Med Recon NoGlossgreat bend (Tool #1) INCLUDED IN THIS LIST: Alphabetical list of active outpatient prescriptions dispensed from this [facility] (local) and dispensed from another [place] or [facility] facility (remote) as well as inpatient orders (local pending and active), local clinic medications, locally documented non-VA medications, and local prescriptions that have or been discontinued in the past 90 days. Non-VA Meds Last Documented On: Jun 14, 2023 NOTE The display of VA prescriptions dispensed from another [place] or [facility] facility (remote) is limited to active outpatient prescription entries matched to National Drug File at the originating site and may not include some items such as investigational drugs, compounds, etc. NOT INCLUDED IN THIS LIST: Medications self-entered by the patient into personal health records (i.e. [employer]) are NOT included in this list. Non-VA medications documented outside this [place], remote inpatient orders (regardless of status) and remote clinic medications are NOT included in this list. The patient and provider must always discuss medications the patient is taking, regardless of where the medication was dispensed or obtained. Non-VA APIXABAN 5MG TAB TAKE ONE TABLET [...] TAKE IMMUNOTHERAPY IM MONTHLY DR Oconnor in [place]. Non-VA SACUBITRIL 49MG/VALSARTAN 51MG TAB TAKE ONE TABLET BY MOUTH TWICE DAILY Non-VA medication not recommended by VA provider. Medication prescribed by Non-VA provider. 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
--- OUTSIDE RECORDS SUMMARY | 2024-09-25 00:55 | XMS_ITS | Continuity of Care Document ---
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 It does not include entries that were removed or entered in error. Problem Status Onset Date Problem Type Date of Resolution Comments Source Automatic implantable cardiac defibrillator in situ Active 06/30/19 17 Condition Aug 27, 2016 Entered By: NATALIE OROZCO Comment: Biotronik dual chamber AICD implanted 06/29/16 due to [place] [facility] Coronary artery disease Active 03/22/19 06 Condition Aug 27, 2016 Entered By: NATALIE OROZCO Comment: s/p [place] 12/2005 followed by CABG x 2 (LAD & RCA)August 06, 2021 Entered By: NATALIE OROZCO Comment: Dr Hendrickson [facility] Chronic kidney disease Active Condition [facility] Colonoscopy Screening Active Condition Aug 27, 2016 Entered By: NATALIE OROZCO Comment: 2002 - normal per pt - f/u 10 yrsAug 27, 2016 Entered By: NATALIE OROZCO Comment: 2012 - normal per pt -[facility] Diabetes mellitus type 2 Active Condition [facility] Diabetic retinopathy Active Condition [facility] History of hepatitis C Active Condition Feb 14, 2018 Entered By: NATALIE OROZCO Comment: 11/04/16 Hep C RNA negative [facility] History of male erectile disorder Active Condition [facility] History of tobacco use Active Condition Aug 27, 2016 Entered By: NATLAIE OROZCO Comment: Started age 16 - Quit age 38 (22 pack yrs) [facility] Hypertension Active Condition [facility] Ischemic cardiomyopathy Active Condition Aug 27, 2016 Entered By: NATALIE OROZCO Comment: LVEF 32% [facility] 05[facility]20/16 [facility] Microalbuminuria due to type 2 diabetes mellitus Active Condition [facility] Mixed hyperlipidemia Active Condition [facility]esity [facility] Onychomycosis of toenails Active [facility] [place] [facility] Primary Care Physician Active Condition Feb 17, 2017 Entered By: NATALIE OROZCO Comment: [facility] [place] [facility] Vitamin D deficiency Active [facility] Diagnosis: ICD-10-CM E11.51 Type 2 diabetes w diabetic peripheral angiopath w/o gangrene Active Diagnosis [facility] Diagnosis: ICD-10-CM L60.3 Nail dystrophy Active Diagnosis [facility] Diagnosis: ICD-10-CM I10 Essential (primary) hypertension Active Diagnosis [facility] Diagnosis: ICD-10-CM R21 Rash and other nonspecific skin eruption Active Diagnosis [facility] Diagnosis: ICD-10-CM Z23 Encounter for immunization Active Diagnosis [facility] Diagnosis: ICD-10-CM Z46.0 Encounter for fit/adjst of spectacles and contact lenses [facility] Diagnosis: ICD-10-CM E11.9 Type 2 diabetes mellitus without complications Active [facility] [facility] Diagnosis: ICD-10-CM R05.9 Cough, unspecified Active Diagnosis [facility] Diagnosis: ICD-10-CM I25.10 Athscl heart disease of qawalangin coronary artery w/o ang pctrs Active Diagnosis [facility] Medications Combined list of outpatient medications from Department of Defense and Veterans Affairs facilities.Medications provided include 1) outpatient medications from the last 15 months, and 2) patient-reported medications. Medication Details Route Status Patient Instructions Prescription Expires Prescription Number Last Dispense Date Ordering Provider Order Date Order Qty Source APIXABAN 5MG TAB TAKE ONE TABLET BY MOUTH EVERY 12 HOURS ORAL ACTIVE SHAY OROZCO SA 2021 [facility] [place] [facility] ASPIRIN 81MG TAB,EC TAKE ONE TABLET BY MOUTH EVERY DAY ORAL ACTIVE SAUD AYLIN Francisco 2013 [facility] ATORVASTATI N CA 80MG TAB TAKE ONE-HALF TABLET BY MOUTH AT BEDTIME ORAL ACTIVE SHAY OROZCO SA 2017 [facility] CHOLECALCIF KAUR 25MCG (1,000UNIT) TAB TAKE ONE TABLET BY MOUTH ONCE DAILY ORAL ACTIVE SHAY OROZCO SA 2021 [facility] DULAGLUTIDE 1.5MG/0.5ML INJ,SOLN,PE N INJECT 1.5MG SUBCUTAN EOUSLY ONCE A WEEK SUBCUT ANEOUS ACTIVE SHAY OROZCO SA 2023 [facility] FENOFIBRATE 54MG TAB TAKE ONE TABLET BY MOUTH ORAL ACTIVE SHAY OROZCO SA 2016 [facility] FISH OIL CAP,ORAL TAKE 1200MG BY MOUTH ONCE DAILY ORAL ACTIVE SHAY OROZCO SA 2017 [facility] GLIPIZIDE 5MG TAB TAKE ONE TABLET BY MOUTH TWICE DAILY ORAL ACTIVE SHAY OROZCO SA 2021 [facility] KETOCONAZOL E 2% CREAM,TOP APPLY A THIN LAYER TOPICALL Y TWICE DAILY TOPICA L ACTIVE SHAY OROZCO SA 2020 [facility] METFORMIN HCL 1000MG TAB TAKE ONE TABLET BY MOUTH TWICE DAILY ORAL ACTIVE BOBO [place] P 2020 [facility] [place] [facility] METOPROLOL SUCCINATE 50MG TAB,SA TAKE ONE TABLET BY MOUTH ONCE DAILY ORAL ACTIVE HSAY OROZCO SA 2017 [facility] OTHER CAP/TAB TAKE IMMUNOTH ERAPY IM MONTHLY ACTIVE DAVONTEJUANY AYLIN [place] 2013 [facility] SACUBITRIL 49MG/VALSAR HYDE 51MG TAB TAKE ONE TABLET BY MOUTH TWICE DAILY ORAL ACTIVE SHAY OROZCO SA 2022 [facility] Immunizations Combined list of available immunizations from the Department of Defense and Veterans Affairs facilities. Immunization Series Date Given Administered By Site Reaction Lot Number CVX Code Drug Hydraulic Jack Adjuster Status Comments Source INFLUENZA, HIGH-DOSE, TRIVALENT, PF 2023 JOSHUA HESS LEFT DELTO ID [id number] 135 complet ed [facility]ELD PNEUMOCOCCAL CONJUGATE PCV20, POLYSACCHARID E [id number] CONJUGATE, ADJUVANT, PF 2023 DESTINIJOYCE ODESSA M LEFT DELTO ID [id number] 216 complet ed [facility] COVID-19 (MODERNA), MRNA, LNP-S, PF, 100 MCG OR 50 MCG DOSE 3 2021 207 complet ed MOD; [id number]; 2 [facility] INFLUENZA VACCINE, QUADRIVALENT, ADJUVANTED 2020 205 complet ed [facility] COVID-19 (MODERNA), MRNA, LNP-S, PF, 100 MCG/0.5 ML DOSE 2 2020 207 complet ed MOD; [id number]; 1 [facility] COVID-19 (MODERNA), MRNA, LNP-S, PF, 100 MCG/0.5 ML DOSE 1 2020 207 complet ed MOD; [id number]; 1 [facility] INFLUENZA, UNSPECIFIED FORMULATION 2020 88 complet ed [facility] INFLUENZA, HIGH DOSE SEASONAL 2018 135 complet ed 02, Partner: [facility]. Administe red by: ELISSA BONNER (LXP=[id number]). Partner 8 Lot#: [id number] Mfr: Sanofi Pasteur; Dosage: 0.5 [facility] INFLUENZA, SEASONAL, INJECTABLE 2017 141 complet ed [facility] [place] [facility] ZOSTER RECOMBINANT 2 2017 187 complet ed Yes [facility] ZOSTER RECOMBINANT 1 2017 187 complet ed Yes [facility] TDAP 2016 115 complet ed Site: Left Deltoid [place] INFLUENZA, SEASONAL, INJECTABLE 2016 141 complet ed [facility] ZOSTER (HISTORICAL) 2016 121 complet ed non va [facility] FLU,3 YRS (HISTORICAL) 2015 88 complet ed [facility] FLU,3 YRS (HISTORICAL) 2012 88 complet ed . [facility] FLU,3 YRS (HISTORICAL) 2001 DAISY SEPULVEDA 88 complet ed [facility] Results Combined list of recent chemistry, hematology and other laboratory results from Department of Defense and Veterans Affairs, ranging from 15 months to all on record, depending upon the facility. Order Name Results Value Reference Range Date Interpretation Specimen Comments Source COVID-19 FLU/RSV DIAGNOST IC PANEL SARS-COV-2 (COVID-19) RNA [PRESENCE] IN RESPIRATOR Y SYSTEM SPECIMEN BY STEPHANIE WITH PROBE DETECTION POSITIVE 11/29 Specimen Type: NASOPHARYNX Comment: This test is authorized for emergency use only. False negative results may occur if virus is present at levels below the analytical limit of detection.N egative results do not preclude SARS-CoV-2, influenza or RSV infection and should not be used as the sole basis for treatment or other patient management decisions.C epheid FLUVID: HCPs: https://www .fda.gov/nh bonita/640264/ download. Patients: https://www .fda.gov/nh bonita/392748/ download Ordering Provider: NATALIE OROZCO Report Released Date/Time: Nov 30, 2023 11:08 AM Reporting Lab: [facility] [address] [facility] [address] Performing Lab: [facility] [address] [facility] [address] [facility] COVID-19 FLU/RSV DIAGNOST IC PANEL FLU A PCR (FLUVID) NEGATIVE 11/29 Specimen Type: NASOPHARYNX Comment: This test is authorized for emergency use only. False negative results may occur if virus is present at levels below the analytical limit of detection.N egative results do not preclude SARS-CoV-2, influenza or RSV infection and should not be used as the sole basis for treatment or other patient management decisions.C epheid FLUVID: HCPs: https://www .[facility].gov/nh bonita/494988/ download. Patients: https://www .[facility].gov/nh bonita/265737/ download Ordering Provider: NATALIE OROZCO Report Released Date/Time: Nov 30, 2023 11:08 AM Reporting Lab: [facility] [address] [address] Performing Lab: [address] [address] [place] COVID-19 FLU/RSV DIAGNOST IC PANEL FLU B PCR (FLUVID) NEGATIVE 11/29 Specimen Type: NASOPHARYNX Comment: This test is authorized for emergency use only. False negative results may occur if virus is present at levels below the analytical limit of detection.N egative results do not preclude SARS-CoV-2, influenza or RSV infection and should not be used as the sole basis for treatment or other patient management decisions.C epheid FLUVID: HCPs: https://www .[facility].gov/nh bonita/312495/ download. Patients: https://www .[facility].gov/nh bonita/517823/ download Ordering Provider: NATALIE OROZCO Report Released Date/Time: Nov 30, 2023 11:08 AM Reporting Lab: [address] [address] Performing Lab: [address] [address] [place] COVID-19 FLU/RSV DIAGNOST IC PANEL RSV PCR (FLUVID) NEGATIVE 11/29 Specimen Type: NASOPHARYNX Comment: This test is authorized for emergency use only. False negative results may occur if virus is present at levels below the analytical limit of detection.N egative results do not preclude SARS-CoV-2, influenza or RSV infection and should not be used as the sole basis for treatment or other patient management decisions.C epheid FLUVID: HCPs: https://www .fda.gov/me bonita/352531/ download. Patients: https://www .fda.gov/me bonita/502079/ download Ordering Provider: NATALIE OROZCO Report Released Date/Time: Nov 30, 2023 11:08 AM Reporting Lab: [facility] [address] [facility] [address] Performing Lab: [address] [address] [facility] SARS-COV -2 VARIANT SEQ PNL(WHV) SARS-COV-2 (COVID-19) LINEAGE [IDENTIFIE R] IN SPECIMEN BY MOLECULAR GENETICS METHOD KP.3.1.1 11/29 Specimen Type: NASOPHARYNX Comment: -Pangolin version 4.3.1 (data version 04.19.) -Nextclade version 3.8.2 (data version 2023-10-06) https://www .cdc.gov/co ronavirus/2 019-ncov/ca ses-updates /variant- surveillanc e/variant-i nfo.html The [employer] AmpliSeq SARS CoV 2 Insight Research Assay-GX is a next-genera tion sequencing (NGS) assay that determines the complete genome sequence of the SARS-CoV-2 virus. The assay contains variant-shira erant primers to broaden and improve the coverage for variant detection and increase the sensitivity of the panel to enable detection from lower viral titer samples. The assay is run on the StockRadar Sequencer, which performs automated library preparation , sequencing, analysis, and reporting. The sequence analysis includes determinati on of viral phylogeneti c lineage by comparison to the reference strain Wuhan-Hu-1, GenBank: [id number]. Sequence determinati on may not be possible owing to inadequate quantity or quality of the viral RNA in the original specimen. Sequencing will not be attempted if the SARS-CoV-2 PCR assay result has a Ct > 30. Note that phylogeneti c lineage assignment in some cases may supervisor records change time for the same sequence as the virus continues to evolve and new sub lineages are created. The reported result will reflect the lineage assignment only at the time of initial sequence determinati on. This test was developed, and its performance characteris tics determined by the [facility], which is certified under the Clinical Laboratory Improvement Amendments (CLIA) as qualified to perform high complexity clinical laboratory testing. This test is validated for clinical use at [facility] and should not be regarded as investigati onal or for research. The FDA does not require this test to go through premarket FDA review, and therefore it has not been cleared or approved by the FDA. This report was reviewed and approved by the on-service pathologist . Ordering Provider: NATALIE OROZCO Report Released Date/Time: Jan 13, 2024 09:27 AM Reporting Lab: [facility] [address] [facility] [address] Performing Lab: [facility] [address] [facility] [address] [facility] SARS-COV -2 VARIANT SEQ PNL(V) SARS-COV-2 (COVID-19) CLADE [TYPE] IN SPECIMEN BY MOLECULAR GENETICS METHOD 24C ([employer] ) 11/29 Specimen Type: NASOPHARYNX Comment: -Pangolin version 4.3.1 (data version ) -Nextclade version 3.8.2 (data version 2023-10-06) https://www .cdc.gov/co ronavirus/2 019-ncov/ca ses-updates /variant- surveillanc e/variant-i nfo.html The iVengo SARS CoV 2 Insight Research Assay-GX is a next-genera tion sequencing (NGS) assay that determines the complete genome sequence of the SARS-CoV-2 virus. The assay contains variant-shira erant primers to broaden and improve the coverage for variant detection and increase the sensitivity of the panel to enable detection from lower viral titer samples. The assay is run on the StockRadar Sequencer, which performs automated library preparation , sequencing, analysis, and reporting. The sequence analysis includes determinati on of viral phylogeneti c lineage by comparison to the reference strain Wuhan-Hu-1, GenBank: [id number]. Sequence determinati on may not be possible owing to inadequate quantity or quality of the viral RNA in the original specimen. Sequencing will not be attempted if the SARS-CoV-2 PCR assay result has a Ct > 30. Note that phylogeneti c lineage assignment in some cases may supervisor records change time for the same sequence as the virus continues to evolve and new sub lineages are created. The reported result will reflect the lineage assignment only at the time of initial sequence determinati on. This test was developed, and its performance characteris tics determined by the [facility], which is certified under the Clinical Laboratory Improvement Amendments (CLIA) as qualified to perform high complexity clinical laboratory testing. This test is validated for clinical use at [facility] and should not be regarded as investigati onal or for research. The FDA does not require this test to go through premarket FDA review, and therefore it has not been cleared or approved by the FDA. This report was reviewed and approved by the on-service pathologist . Ordering Provider: NATALIE OROZCO Report Released Date/Time: Jan 13, 2024 09:27 AM Reporting Lab: [facility] [place] [facility] [address] [facility] [address] Performing Lab: [facility] [place] [facility] [address] [facility] [address] [facility] Vital Signs Combined list of inpatient and outpatient Vital Signs from Department of Defense and Veterans Affairs, ranging from 12 months to all on record, depending upon the facility. Vital Sign Value Date Comments Source SYSTOLIC BLOOD PRESSURE 130 06/14/19 25 10:07:13 [facility] [place] [facility] DIASTOLIC BLOOD PRESSURE 84 025 10:07:13 [facility] [place] [facility] PULSE OXIMETRY 96 06/13/2024 10:07:13 [facility] [place] [facility] WEIGHT 210.4 06/13/2024 10:07:13 [facility] [place] [facility] BMI 29 kg/m2 06/13/2024 10:07:13 [facility] [place] [facility] PAIN 0 06/13/2024 10:07:13 [facility] [place] [facility] HEIGHT 71 06/13/2024 10:07:13 [facility] [place] [facility] TEMPERATURE 97.9 06/13/2024 10:07:13 [facility] [place] [facility] PULSE 86 06/13/2024 10:07:13 [facility] [place] [facility] RESPIRATION 18 06/13/2024 10:07:13 [facility] [place] [facility] SYSTOLIC BLOOD PRESSURE 115 03/31/19 11:29:15 [facility] DIASTOLIC BLOOD PRESSURE 77 025 11:29:15 [facility] PULSE OXIMETRY 95 03/31/2024 11:29:15 [facility] PAIN 0 03/31/2024 11:29:15 [facility] TEMPERATURE 98.7 03/31/2024 11:29:15 [facility] PULSE 94 03/31/2024 11:29:15 [facility] RESPIRATION 20 03/31/2024 11:29:15 [facility] SYSTOLIC BLOOD PRESSURE 128 11/30/19 24 11:01:25 [facility] DIASTOLIC BLOOD PRESSURE 90 024 11:01:25 [facility] PULSE OXIMETRY 96 11/30/2023 11:01:25 [facility] PAIN 2 11/30/2023 11:01:25 [facility] TEMPERATURE 98.5 11/30/2023 11:01:25 [facility] PULSE 92 11/30/2023 11:01:25 [facility] RESPIRATION 22 11/30/2023 11:01:25 [facility] Encounters Combined list of: 1) Encounters from Department of [facility] Affairs facilities going backup to the last 18 months, not all [place] inpatient encounters are included; 2) Encounters from the Department of [facility] facilities going backup to 280 months. Location Location Details Encounter Type Encounter Number Reason For Visit Attending Provider ADM Date DC Date Status Disposition Source [facility] [place] [facility] Outpatient Encounter [id number] 05/05 [facility] [place] [facility] [place] [facility] Outpatient Encounter [id number] 06/13 [place] [facility] [place] [facility] OFFICE O/P EST MOD 30 MIN [id number] Diagnos is: ICD-10- CM I25.10 Athscl heart disease of qawalangin coronar y artery w/o ang pctCHRIS Zhang 06/13 [facility] [place] [facility] Outpatient Encounter [id number] 06/28 [facility] [place] En[facility] [id number] 06/29 [facility] [place] DIABETIC CUSTOM MOLDED SHOE [id number] Diagnos is: ICD-10- CM E11.51 Type 2 diabete s w diabeti c periphe ral angiopa th w/o gangren e PAKARRIK,JOSTIN E L 08/22 [place] OFF/OP EST JULY X REQ PHY/QHP [id number] Diagnos is: ICD-10- CM R05.9 Cough, unspeci fied BARBY,ER IC K 11/29 [place] [facility] Out[facility] Encounter [id number] 11/29 [facility] [place] En[facility] [id number] 1.12/26 [facility] COMPRE OPH EXAM EST PT 1/> [id number] Diagnos is: ICD-10- CM E11.9 Type 2 diabete s mellitu s without complic ations HA WILLIAM 12/28 [facility] FIT SPECTACLES MONOFOCAL [id number] 1. Diagnos is: ICD-10- CM Z46.0 Encount er for fit/adj st of spectac les and contact lenses HA WILLIAM 12/28 [facility] Out[facility] Encounter [id number] 01/06 [facility] [place] OFF/OP EST MAY X REQ PHY/QHP [id number] Diagnos is: ICD-10- CM Z23 Encount er for immuniz ation CATY HESS R 01/11 [place] [facility] Out[facility] Encounter [id number] 01/12 [facility] [place] Out[facility] En[facility] [id number] 03/05 [facility] [place] OFF/OP EST MAY X REQ PHY/QHP [id number] Diagnos is: ICD-10- CM R21 Rash and other nonspec ific skin eruptio n BARBY,ER IC [place] [facility] Out[facility] Encounter [id number] [facility] En[facility] [id number] 1.04/14 [facility] [place] Out[facility] Encounter [id number] 05/17 [facility] [place] Out[facility] En[facility] [id number] [facility] [place] OFFICE O/P EST LOW 20 MIN [id number] 1BY. 08 Diagnos is: ICD-10- CM I10 Essenti al (primar y) hyperte nsCHRIS Foster 06/13 [place] [facility] Out[facility] Encounter [id number] [facility] [place] [facility] OFFICE O/P EST LOW 20 MIN [id number] Diagnos is: ICD-10- CM L60.3 Nail dystrop hy DINACHARL ES F 06/23 [facility] [place] [facility] Outpatient Encounter [id number] 06/27 [facility] [facility] DIABETIC CUSTOM MOLDED SHOE [id number] 1BY. 26 Diagnos is: ICD-10- CM E11.51 Type 2 diabete s w diabeti c periphe ral angiopa th w/o JOSTIN Vee 07/13 [facility] Social History Combined list of available smoking, tobacco, and other social history from Department of Defense and Veterans Affairs facilities. Social History Type Response Date Comment Source Tobacco [facility] OTHER TYPE 06/13/2024 [facility] 06/13/2024 [facility] 06/14/2023 [facility] Y[facility] OR MORE 06/18/2022 [facility] History of tobacco use [place]-TOBACCO FORMER USER 10/28/2020 [facility] [place] [facility]/15[facility]2017 [facility] History of tobacco use QUIT TOBACCO USE > 7 YEARS AGO 08/25/2016 [facility]/22/[facility] [place] [facility] History of tobacco use QUIT TOBACCO USE > 7 YEARS AGO 11/15/2001 quitted 20 years ago [facility] [place] [facility] History of tobacco use HISTORY OF SMOKING 11/15/2001 Quit [facility] 1974 [facility] [place] [facility] Plan of Care List of future care activities from Department of Veterans Affairs facilities. Additional future care activities may be listed in the Assessment and Plan section. Date/Time Care Activity Care Activity Detail Facili ty 12/26/2024 AMBULATORY - MEDICINE AMBULATORY - MEDICI NE [facility] [facility] Advance Directives List of completed, amended, or rescinded Advance Directives on record at Department of [facility] facilities. An actual copy of the Directive is not included. Date Advance Directive Provider Source 08/27/2016 ADVANCE DIRECTIVE CARSON OLSON
--- OUTSIDE RECORDS SUMMARY | 2024-11-13 14:49 | XMS_ITS | Clinical Summary ---
Author Organization [facility] Address [address] [place] [address] Care Team Providers Care Manager Business Banking Name Role Phone Gordon Shannon MD Primary Care Provider [phone] Allergies No known active allergies Medications Medication Sig Dispensed Refills Start Date End Date Status fenofibrate (TRICOR,LOFIBRA) tablet 54 mg Take 54 mg by mouth daily. 1 01/18/2019 Active ergocalciferol (VITAMIN D2) capsule 34901 units TAKE 1 CAPSULE BY MOUTH ONCE A WEEK 0 11/25/2018 Active liraglutide (VICTOZA) injection 18 mg/3 mL 1.8 mg. 0 01/31/2019 Acti ve metoprolol succinate (TOPROL-XL) 24 hr tablet 50 mg Take 50 mg by mouth. 0 04/20/2018 Active aspirin 81 MG tablet 1 TABLET DAILY 0 Active atorvastatin (LIPITOR) tablet 40 mg Take 40 mg by mouth. 0 01/27/2018 Active glucose blood (FREESTYLE LITE) test strip Apply 1 strip topically. 0 01/21/2018 Active Insulin Pen Needle (RELION PEN NEEDLES) 31G X 6 MM [facility] [place] USE 1 PEN NEEDLE ONCE DAILY WITH VICTOZA PEN 0 01/30/2019 Active [place]-3 Fatty Acids (FISH OIL) 1200 MG CAPS 1 tab qd 0 Active lisinopril (PRINIVIL,ZESTRIL) tablet 10 mg Take 10 mg by mouth daily. 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 05/24/2019 Impingement syndrome of right shoulder region Family History Medical History Relation Name Comments Arthritis Mother Relation Name Status Comments Mother Social History Tobacco Use Types Packs/Day Years Used Date Smoking Tobacco: Former Cigarettes 0.5 1 971 - 1974 Smokeless Tobacco: Never Alcohol Use Standard Drinks/Week Comments No 0 (1 standard drink = 0.6 oz pur e alcohol) Sex and Gender Information Value Date Recorded Sex Assigned at Not on file Gender Identity Not on file Sexual Orientation Not on file Last Filed Vital Signs Vital Sign Reading Time Taken Comments Blood Pressure - - Pulse - - Temperature - - Respiratory Rate - - Oxygen Saturation - - Inhaled Oxygen Concentration - - Weight 90.3 kg (199 lb) 02/22/2019 10:37 AM EST Height 180.3 cm (5' 11 ) 02/22/2019 10:37 AM EST Body Mass Index 27.75 02/22/2019 10:37 AM EST Plan of Treatment Health Maintenance Due Date Last Done Comments Hepatitis C Screening 1950 COVID-19 Vaccine (#1) 06/18/1951 Depression Screening 1964 Preventative Health Evaluation 1970 Colon Cancer Screening (Colonoscopy) 1997 Fall Risk Assessment 2017 Pneumococcal Vaccine (3 of 3 - PPSV23 or PCV20) 12/11/2021 01/30/2019, 12/11/2016 Influenza Vaccine (#1) 2024 9, 12/11/2016, 11/27/2015, Additional history exists DTap / Tdap / Td (2 - Td or Tdap) 09/11/2026 09/11/2016 RSV Adult > 60+ Yrs or (1 - 1-dose 75+ series) 12/20/2027 Shingrix-Zoster Vaccine Completed 10/06/2017, 05/13 Hepatitis B Vaccines Aged Out No long er eligible based on patient's age to complete this topic RSV Ped < 20 months Aged Out No longe r eligible based on patient's age to complete this topic Care Teams Manager Business Banking Relationship Specialty Start Date End Date Gordon Shannon MD PCP - General Internal Medicine 01/31/19
--- OUTSIDE RECORDS SUMMARY | 2024-11-13 14:50 | XMS_ITS | Encounter Summary ---
Author Name [facility] Organization [facility] Address [address] [place] [address] Care Team Providers Care Supervisor [employer] Name Role Phone NATALIE OROZCO Primary Care [...] PART A Nov 20, 2017 PART A [id number] [place], OM PATIENT MEDICARE (WNR) MEDICARE (M) PART B Nov 20, 2017 PART B [id number] VENICE, OM PATIENT Selected Encounter This section includes the information on record at [place] for the Encounter. Date/Time Encounter Type Encounter Description Reason Pro vider Source IHE Encounter Template Text not used by [place] Advance Directives: All historical and current Section Date Range: From patient's date of to the date document was created. This section includes ALL of a patient's completed or amended [place] Advance and Rescinded Directives. The entries below indicate that a directive exists for the patient, but an actual copy is not included with this document. The data comes from all [place] facilities. Date Advance Directives Provider Source Aug 27, 2016 ADVANCE DIRECTIVE CARSNO OLSON
--- OUTSIDE RECORDS SUMMARY | 2024-11-13 14:50 | XMS_ITS | Clinical Summary ---
Author Organization [facility] [address] [place] [address] [address] [place] [address] Phone Care Team Providers Care Vp Hr Diversity Name Role Phone Gordon Shannon MD Primary Care Provider Allergies Active Allergy Reactions Criticality Noted Date Comments Pollen Extracts 05/12/2022 Medications nystatin, bulk, 10 billion unit powder APPLY TO AFFECTED AREA THREE TIMES DAILY 4 Active hydrOXYzine HCL (ATARAX) 25 mg tablet Take 1 Tablet by mouth 3 times daily as needed for Anxiety (insomnia). 4 Active sacubitriL-delmis sartan (Entresto) 49-51 mg per tablet Take 49-51 mg by mouth every 12 hours. 4 Active OneTouch Ultra Test test strip USE TO CHECK GLUOSE LEVEL ONCE A DAY 4 Active diclofenac (VOLTAREN) 1 % topical gel Apply 1 g topically 4 times daily as needed (hand pain). 3 Active ONETOUCH ULTRASOFT LANCETS MISC Test 3 x daily 0 Active pen needle, diabetic 32 gauge x needle Use once a week with ozempic 0 Active aspirin 81 mg EC tablet 1 TABLET DAILY Activ e omega 3-gov-yhl-fish oil (Fish OiL) 1,200 (144-216) mg capsule 1 tab qd Active glipiZIDE (GLUCOTROL) 10 mg tablet Take 1 tablet (10 mg total) by mouth 2 (two) times a day before meals. 180 tablet 1 5 Active hydrocortisone 2.5 % cream Apply topically 2 (two) times a day if needed for irritation or rash. 30 g 2 5 06/10/19 26 Active apixaban (Eliquis) 5 mg tablet Take 1 tablet (5 mg total) by mouth 2 (two) times a day. 180 tablet 1 5 Active metoprolol succinate (TOPROL-XL) 50 mg 24 hr tablet Take 1 tablet (50 mg total) by mouth 1 (one) time each day. 90 tablet 1 5 Active fenofibrate (LOFIBRA) 54 mg tablet Take 1 tablet (54 mg total) by mouth 1 (one) time each day. 90 tablet 1 5 Active atorvastatin (LIPITOR) 40 mg tablet TAKE 1 TABLET BY MOUTH DAILY 90 tablet 1 5 Active metFORMIN (GLUCOPHAGE) 1,000 mg tablet Take 1 tablet (1,000 mg total) by mouth 2 (two) times a day with meals. 180 tablet 1 5 Active dulaglutide (TRULICITY) 3 mg/0.5 mL pen injector injectionIndic ations:Type 2 diabetes mellitus with other diabetic kidney complication, without long-term current use of insulin (CMS/HCC V24, CMS/HCC V28) Inject 0.5 mL (3 mg total) under the skin every 7 (seven) days. 2 mL 5 5 Active nystatin (MYCOSTATIN) 100,000 unit/gram powder Apply topically 3 (three) times a day. 30 g 1 5 Active ketoconazole (NIZORAL) 2 % cream Apply topically 2 (two) times a day. 90 g 1 5 Active nystatin (MYCOSTATIN) 100,000 unit/gram powder Apply to area tid 4 11/03/19 25 Discontinu ed(Reorder ) dulaglutide (TRULICITY) 3 mg/0.5 mL pen injector injectionIndic ations:Type 2 diabetes mellitus with other diabetic kidney complication, without long-term current use of insulin (CMS/HCC V24, [facility] V28) Inject 0.5 mL (3 mg total) under the skin every 7 (seven) days. 2 mL 5 5 11/03/19 25 Discontinu ed(Reorder ) ketoconazole (NIZORAL) 2 % cream APPLY TOPICALLY TO INGUINAL FOLDS TWICE DAILY X10 DAYS 90 g 1 5 11/03/19 25 Discontinu ed(Reorder ) Active Problems Problem Noted Date Diagnosed Date Mixed hyperlipidemia 02/16/2024 Overview (02/16/2024): Last Assessment & Plan: Last lipid panel from July 2021. Total cholesterol 110, triglycerides 222, HDL 32, LDL 34. Continue statin therapy and fenofibrate. Type II diabetes mellitus wi th renal manifestations ([facility] V24, [facility] V28) 02/16/2024 Abdominal aortic aneurysm (A AA), 30-34 mm diameter ([facility] V24) 09/01/2022 Overview (02/16/2024): 3.3 cm proximal AAA (on echo 08/26/22) Obstructive sleep apnea syndrome 05/02/2021 CKD (chronic kidney disease) stage 3, GFR 30-59 ml/min ([facility] V24, [facility] V28) 01/31/2019 Ischemic cardiomyopathy 03/02/2016 Overview (02/16/2024): Last Assessment & Plan: This gentleman has an ischemic cardiomyopathy. He has a Biotronik ICD for primary prevention. He has had no discharges from his device. EF is 20% from May 2021. We will continue to titrate his guideline directed medical therapy. We will increase Entresto to 49/51 mg twice daily. He will get laboratories in 1 week. He will otherwise continue metoprolol at the current dose. We will likely start Farxiga at next office visit. He has had no ischemic symptoms. Hopefully with increasing medications EF will improve. Tinea pedis 01/25/2013 Diabetic retinopathy ([facility] V24, [facility] V28) 02/26/2011 Overview (02/16/2024): Trace diabetic retinopathy OD per Dr. Shaffer on 01/13/2011 Erectile dysfunction 02/26/2011 Overview (02/16/2024): Noted on dictation of 04/04/2009 Dr.Philip Means. Microalbuminuria 02/26/2011 Nuclear sclerosis 02/26/2011 Overview (02/16/2024): 2+ nuclear sclerosis bilat per Dr. Shaffer on 01/13/2011. Old myocardial infarction 02/26/2011 Overview (02/16/2024): Per dictation of BOLIVAR Champion on 02/08/2009. Pt with anterior WY in 12/2005 followed by stenting of the LAD and 1 week later--stenting of RCA. Type II diabetes mellitus wi th ophthalmic manifestations (CMS/HCC V24, CMS/HCC V28) 02/26/2011 Essential hypertension, benign 09/09/2010 Overview (02/16/2024): Last Assessment & Plan: He is stable without any ischemic symptoms at this time and exercising regularly. 130/74 in office today, well-controlled. Increasing Entresto as above. Otherwise continue regimen as above. Encounters Date Type Department Care Team Description 11/02/2024 9:45 AM EDT Office Visit Adult Medicine [address] [phone] Gordon Shannon MD Type 2 diabetes mellitus with diabetic microalbuminuria, without long-term current use of insulin (CMS/HCC V24, CMS/HCC V28) (Primary Dx); Stage 3 chronic kidney disease, unspecified whether stage 3a or 3b CKD (CMS/HCC V24, CMS/HCC V28); Pure hypercholesterolemia ; Essential hypertension, benign; Microalbuminuria; Encounter for long-term (current) use of medications; Type 2 diabetes mellitus with other diabetic kidney complication, without long-term current use of insulin (CMS/HCC V24, CMS/HCC V28); Proteinuria, unspecified type; Rash 09/25/2024 6:00 AM EDT Ancillary Procedure [facility] [address] [facility] [address] [place] [address] from Last 3 Months Immunizations Name Administration Dates Next Due H1N1 Inj Preservative Free 02/05/2009 Influenza Quadravalent, MDCK , 0.5ml, with preservative (Flucelvax) 6mo and older 12/11/2016 Influenza trivalent, 0.5mL ( Fluad) 65yo and older 01/05/2022,12/26/2020,11/21/2019,12/30,12/27/2017 Influenza trivalent, 0.5mL, preservative free (Fluarix; FluLaval; Fluzone) ages 6mo and older (Afluria) 3 years and older 11/27/2015,12/23/2013,12/12/2011 Influenza trivalent, with pr eservative (Fluzone; Afluria) 6mo and older 12/14/2014,12/20/2012,01/07/2011,01/01,12/14/2008 Influenza, Unspecified 12/23/2013 Moderna SARS-CoV-2 COVID-19, mRNA, LNP-S, preservative free 04/12/2021,07/23/2020,06/25/2020 Pneumococcal conjugate 13 va lent (Prevnar 13, PCV13) 2mo and older 01/30/2019 Pneumococcal polysaccharide 23 valent (Pneumovax 23) 2yo and older 05/12/2022,12/11/2016 Tdap Tetanus diptheria acell ular pertussis (Boostrix; Adacel) 7yo and older 09/11/2016 Zoster Live 04/26/2016 Zoster recombinant (Shingrix ) 19yo and older 10/06/2017,05/13/2017 Surgical History Surgery Date Site/Laterality Comments OTHER SURGICAL HISTORY PROCEDURE: ---- OTHER ----; COMMENT: coronary stent Medical History Medical History Date Comments Type II or unspecified type diabetes mellitus without mention of complication, uncontrolled DX:Type II or unspecified t ype diabetes mellitus without mention of complication, uncontrolled Mixed hyperlipidemia DX:Mixed hy perlipidemia Heart disease, unspecified DX:He art disease, unspecified Unspecified essential hypertension DX:Unspecified essential hypertension CKD (chronic kidney disease) stage 3, GFR 30-59 ml/min ([facility] V24, CMS/HCC V28) DX:CKD (chronic kidney disea se) stage 3, GFR 30-59 ml/min ([facility]) Ischemic cardiomyopathy DX:Ische casper cardiomyopathy Family History Medical History Relation Name Comments Arthritis Father Blindness Neg Hx Cataracts Neg Hx Glaucoma Neg Hx Macular degeneration Neg Hx Strabismus Neg Hx Relation Name Status Comments Father Social History Tobacco Use Types Packs/Day Years Used Date Smoking Tobacco: Former Smokeless Tobacco: Never Tobacco Cessation:Counseling Given: Not Answered Alcohol Use Standard Drinks/Week Comments No 0 (1 standard drink = 0.6 oz pur e alcohol) Sex and Gender Information Value Date Recorded Sex Assigned at Not on file Legal Sex Male 4:16 PM EST Gender Identity Not on file Sexual Orientation Not on file Obstetrics History Last Filed Vital Signs Vital Sign Reading Time Taken Comments Blood Pressure 112/60 11/02/2024 9:36 AM EDT Pulse 108 11/02/2024 9:36 AM EDT Temperature 36.2 C (97.1 F) 11/02/2024 9:36 AM EDT Respiratory Rate 16 04/25/2024 7:49 AM EST Oxygen Saturation 94% 11/02/2024 9:36 AM EDT Inhaled Oxygen Concentration - - Weight 95.2 kg (209 lb 14.4 oz) 11/02/2024 9:36 AM EDT Height 180.3 cm (5' 10.98 ) 11/02/2024 9:36 AM E DT Body Mass Index 29.29 11/02/2024 9:36 AM EDT Plan of Treatment Upcoming Encounters Date Type Department Care Team (Late st Contact Info) Description 11/22/2024 10:30 AM EDT Ancillary Procedure [facility] [address] [facility] [address] [place] [id number] 05/24/2025 8:30 AM EST Office Visit Adult Medicine [address] [phone] Gordon Shannon MD [address] [place] [id number] Health Maintenance Due Date Last Done Comments Diabetes: Annual Foot Exam 1962 RSV Immunization Adult Patients (1 - Risk 60-74 years 1-dose series) 2012 Colorectal Cancer Screening: Colonoscopy 02/27/2022 Falls Risk Assessment 02/27/2022 Medicare Annual Wellness Visit 02/27/2022 Social Influencers of Health Screening 02/27/2022 COVID-19 Vaccine ( season) 2023 04/12/2021, 07/23/2020, 06/25/2020 Depression Screening 03/22/2024 Influenza Vaccine (#1) 2024 , 12/23/2022, 01/05/2022, Additional history exists Diabetes: Annual Retina Eye Exam 04/14/2025 04/14/2024 Diabetes: Blood Sugar Control Test (HGBA1C) 05/05/2025 11/02/2024, 04/25/2024, 01/18/2024, Additional history exists Diabetes: Annual Urine Albumin-Creatinine Ratio (uACR) 11/02/2025 11/02/2024, 04/22/2023 Diabetes: Annual GFR (Glomerular Filtration Rate) 11/02/2025 11/02/2024, 04/25/2024, 01/18/2024, Additional history exists Hypertension/CHF/CAD Annual BMP Blood Test 11/02/2025 11/02/2024, 04/25/2024, 01/18/2024, Additional history exists DTaP,Tdap,and Td Vaccines (3 - Td or Tdap) 02/17/2027 02/17/2017, 09/11/2016 Cholesterol Screening (Lipid Panel) 11/02/2029 11/02/2024, 04/25/2024, 01/18/2024, Additional history exists Hepatitis C Screening Completed 11/16/2013 Zoster Vaccines Completed 10/06/2017, 04/23, 04/26/2016 Pneumococcal Vaccine: 50+ Years Completed 06/14/2023, 05/12/2022, 01/30/2019, Additional history exists HIB Vaccines Aged Out No longer eligi ble based on patient's age to complete this topic HPV Vaccines Aged Out No longer eligi ble based on patient's age to complete this topic Hepatitis A Vaccines Aged Out No long er eligible based on patient's age to complete this topic Hepatitis B Vaccines Aged Out No long er eligible based on patient's age to complete this topic IPV Vaccines Aged Out No longer eligi ble based on patient's age to complete this topic MMR Vaccines Aged Out No longer eligi ble based on patient's age to complete this topic Meningococcal ACWY Vaccine Aged Out N o longer eligible based on patient's age to complete this topic Meningococcal B Vaccine Aged Out No l onger eligible based on patient's age to complete this topic RSV Immunization Patients Under 20 months Aged Out No longer eligible based on patient's age to complete this topic Varicella Vaccines Aged Out No longer eligible based on patient's age to complete this topic Medical Devices Implanted Type Area Transcription Manager Device Identifier Shelf Expiration Date Model / Serial / Lot Renetta-Pebbles Iperia 7 Mark [id number] Implanted:06/20 (Quantity not on file) Cardiac ICD [employer] IPERIA 7 -T / [id number] / Procedures Procedure Name Priority Date/Time Associated Diagnosis Comments HEMOGLOBIN A1C Routine 11/02/2024 3:23 PM EDT Type 2 diabetes mellitus with diabetic microalbuminuria, without long-term current use of insulin ([facility] V24, [facility] V28) LIPID PANEL WITH REFLEX TO DIRECT LDL Routine 11/02/2024 3:23 PM EDT Pure hypercholesterolemia COMPREHENSIVE METABOLIC PANEL Routine 11/02/2024 3:23 PM EDT Stage 3 chronic kidney disease, unspecified whether stage 3a or 3b CKD (CMS/HCC V24, CMS/HCC V28) Essential hypertension, benign Encounter for long-term (current) use of medications MICROALBUMIN CREATININE URINE RATIO Routine 11/02/2024 3:23 PM EDT Microalbuminuria Type 2 diabetes mellitus with diabetic microalbuminuria, without long-term current use of insulin (CMS/HCC V24, CMS/HCC V28) CARDIAC DEVICE CHECK- REMOTE- MURJ Routine 09/25/2024 5:55 AM EDT EXTERNAL DIABETIC RETINA EYE EXAM 04/14/2024 HEPATITIS C SCREENING Routine 11/16/2013 from Last 3 Months or Most Recently Relevant to Health Maintenance Results * (ABNORMAL) Lipid panel with reflex to direct LDL (11/02/2024 3:23 PM EDT) Cholesterol 151 0 - 200 mg/dL LAB CHEMISTRY METHOD 11/02/2024 6:48 PM EDT [facility] Triglycerides 401(H) 0 - 150 mg/dL LAB CHEMISTRY METHOD 11/02/2024 6:48 PM EDT [facility] HDL 30(L) >=40 mg/dL LAB CHEMISTRY METHOD 11/02/2024 6:48 PM EDT [facility] LDL Calculated 41 0 - 100 mg/dL LAB CHEMISTRY METHOD 11/02/2024 6:48 PM EDT [facility] Comment: Unable to calculate when triglycerides >400 mg/dL. Estimated LDL Calculated using equation: Total cholesterol - HDL cholesterol - (Triglycerides/5) VLDL Cholesterol Constantin 80.2 mg/dL LAB CHEMISTRY METHOD 11/02/2024 6:48 PM EDT [facility] Comment:Unable to calculate when triglycerides >400 mg/dL. Non HDL Chol. (LDL+VLDL) 121 <145 mg/dL LAB CHEMISTRY METHOD 11/02/2024 6:48 PM EDT [facility] Comment:Unable to calculate when triglycerides >400 mg/dL. Chol/HDL Ratio 5.0(H) 0.0 - 4.4 LAB CHEMISTRY METHOD 11/02/2024 6:48 PM EDT [facility] Blood Venous blood specimen / Unknown Venipuncture / Unknown 11/02/2024 3:23 PM EDT 11/02/2024 3:23 PM EDT us Gordon Shannon MD LAB BLOOD ORDERABLES Final Resu lt [facility] [address] [place] [address], [place] [phone] * (ABNORMAL) Microalbumin creatinine urine ratio (11/02/2024 3:23 PM EDT) Creatinine, Urine 200.0 mg/dL LAB CHEMISTRY METHOD 11/02/2024 6:48 PM EDT [facility] Microalb, Ur 3,780.0(H ) 0.0 - 29.0 mg/L LAB CHEMISTRY METHOD 11/02/2024 6:48 PM EDT [facility] Microalb/Crea t Ratio 1,890(H) <30 mg/g creat LAB CHEMISTRY METHOD 11/02/2024 6:48 PM EDT [facility] Urine Urine specimen obtained by clean catch procedure / Unknown Non-blood Collection / Unknown 11/02/2024 3:23 PM EDT 11/02/2024 3:23 PM EDT us Gordon Shannon MD LAB URINE ORDERABLES Final Resu lt Performing Organization Address City/[facility]/ZIP Co de Phone Number [facility] [address] [place] [address], [place] [phone] * (ABNORMAL) Hemoglobin A1c (11/02/2024 3:23 PM EDT) [facility] Hemoglobin A1C 8.5(H) <6.5 % LAB CHEMISTRY METHOD 11/02/2024 9:41 PM EDT [facility] Mean Bld Glu Estim. 197 mg/dL LAB CHEMISTRY METHOD 11/02/2024 9:41 PM EDT [facility] Blood Venous blood specimen / Unknown Venipuncture / Unknown 11/02/2024 3:23 PM EDT 11/02/2024 3:23 PM EDT us Gordon Shannon MD LAB BLOOD ORDERABLES Final Resu lt Performing Organization Address [facility]/ZIP Co de Phone Number [facility] [address] [place] [address], [place] [phone] * (ABNORMAL) Comprehensive metabolic panel (11/02/2024 3:23 PM EDT) Sodium 137 133 - 145 mmol/L LAB CHEMISTRY METHOD 11/02/2024 6:46 PM [facility] Potassium 4.7 3.5 - 5.5 mmol/L LAB CHEMISTRY METHOD 11/02/2024 6:46 PM [facility] Chloride 108 96 - 110 mmol/L LAB CHEMISTRY METHOD 11/02/2024 6:46 PM [facility] CO2 24 21 - 32 mmol/L LAB CHEMISTRY METHOD 11/02/2024 6:46 PM [facility] Anion Gap 5 3 - 11 LAB CHEMISTRY METHOD 11/02/2024 6:46 PM [facility] Glucose 197(H) 70 - 100 mg/dL LAB CHEMISTRY METHOD 11/02/2024 6:46 PM [facility] BUN 29(H) 5 - 25 mg/dL LAB CHEMISTRY METHOD 11/02/2024 6:46 PM [facility] Creatinine 1.64(H) 0.70 - 1.30 mg/dL LAB CHEMISTRY METHOD 11/02/2024 6:46 PM [facility] eGFR 44(L) >=60 mL/min/1. 73m2 LAB CHEMISTRY METHOD 11/02/2024 6:46 PM [facility] Comment:Calculation based on the Chronic Kidney Disease Epidemiology Collaboration (CKD-EPI) equation refit without adjustment for race. BUN/Creatinine Ratio 17.7 LAB CHEMISTRY METHOD 11/02/2024 6:46 PM [facility] Calcium 9.6 8.5 - 10.5 mg/dL LAB CHEMISTRY METHOD 11/02/2024 6:46 PM [facility] AST (SGOT) 23 10 - 42 unit/L LAB CHEMISTRY METHOD 11/02/2024 6:46 PM [facility] ALT (SGPT) 35 10 - 60 unit/L LAB CHEMISTRY METHOD 11/02/2024 6:46 PM EDT [facility] Alkaline Phosphatase 51 42 - 121 unit/L LAB CHEMISTRY METHOD 11/02/2024 6:46 PM EDT [facility] Total Protein 7.2 6.0 - 8.0 g/dL LAB CHEMISTRY METHOD 11/02/2024 6:46 PM EDT [facility] Albumin 4.0 3.2 - 5.0 g/dL LAB CHEMISTRY METHOD 11/02/2024 6:46 PM EDT [facility] Total Bilirubin 0.3 0.0 - 1.4 mg/dL LAB CHEMISTRY METHOD 11/02/2024 6:46 PM EDT [facility] Blood Venous blood specimen / Unknown Venipuncture / Unknown 11/02/2024 3:23 PM EDT 11/02/2024 3:23 PM EDT us Gordon Shannon MD LAB BLOOD ORDERABLES Final Resu lt [facility] [address] [place] [address], * Cardiac device check - Remote- MURJ (09/25/2024 5:55 AM EDT) Date Time Interrogation Session [id number] CV DEVICE CHECK Type Interrogation Session RemoteScheduled CV DEVICE CHECK Implantable Pulse Generator Transcription Manager BIO CV DEVICE CHECK Implantable Pulse Generator Type ICD CV DEVICE CHECK Implantable Pulse Generator Model Iperia 7 DR-T CV DEVICE CHECK Implantable Pulse Generator Serial Number [id number] CV DEVICE CHECK Implantable Pulse Generator Implant Date [id number] CV DEVICE CHECK Battery Remaining Percentage 19.00 CV DEVICE CHECK Battery Voltage 2.970 CV D EVICE CHECK Battery BIAZZI NITRATOR OPERATOR Trigger 2.850 CV DEVICE CHECK Battery Status Middle of Service CV DEVICE CHECK Capacitor Charge Time 11.900 CV DEVICE CHECK Fidel Statistic RA Percent Paced 0.00 CV DEVICE CHECK Fidel Statistic RV Percent Paced 8.00 CV DEVICE CHECK Atrial Tachy Statistic AT/AF [place] Percent 0.00 CV DEVICE CHECK Lead Channel Sensing Intrinsic Amplitude 4.700 CV DEVICE CHECK Lead Channel Setting Sensing Sensitivity 0.40 CV DEVICE CHECK Lead Channel Impedance Value 592 CV DEVICE CHECK Lead Channel Pacing Threshold Amplitude 0.800 CV DEVICE CHECK Lead Channel Pacing Threshold Pulse Width 0.4 CV DEVICE CHECK Lead Channel RA Pacing Threshold Date 2024-09-13 CV DEVICE CHECK Lead Channel Setting Pacing Amplitude 1.800 CV DEVICE CHECK Lead Channel Setting Pacing Pulse Width 0.4 CV DEVICE CHECK Lead Channel Sensing Intrinsic Amplitude 13.700 CV DEVICE CHECK Lead Channel Setting Sensing Sensitivity 0.80 CV DEVICE CHECK Lead Channel Impedance Value 563 CV DEVICE CHECK Lead Channel Pacing Threshold Amplitude 0.500 CV DEVICE CHECK Lead Channel Pacing Threshold Pulse Width 0.4 CV DEVICE CHECK Lead Channel RV Pacing Threshold Date 2024-09-13 CV DEVICE CHECK Lead Channel Setting Pacing Amplitude 1.500 CV DEVICE CHECK Lead Channel Setting Pacing Pulse Width 0.4 CV DEVICE CHECK Fidel Setting Mode (NBG Code) DDD CV DEVICE CHECK Fidel Setting Lower Rate Limit 50 CV DEVICE CHECK Fidel Setting AT Mode Switch Rate 160 CV DEVICE CHECK Fidel Setting Maximum Tracking Rate 130 CV DEVICE CHECK Fidel Setting Maximum Sensor Rate 120 CV DEVICE CHECK Fidel Setting PAV Delay 180 CV DEVICE CHECK Fidel Setting IVY Delay 160 CV DEVICE CHECK Therapy Statistic Recent Shocks Delivered 0 CV DEVICE CHECK Therapy Statistic Recent Shocks Aborted 0 CV DEVICE CHECK Therapy Statistic Recent ATP Delivered 0 CV DEVICE CHECK Shock Measured Impedance 93 CV DEVICE CHECK Zone Setting Type Category Zone_ATAF CV DEVICE CHECK Rate 200 CV DEVICE CHECK Zone Setting Status Monitor CV DEVICE CHECK Zone ID 7 CV DEVICE CHECK Zone Setting Type Category VF CV DEVICE CHECK Rate 200 CV DEVICE CHECK Therapies Burst,40.0J,40.0J, 40.0J x 6 CV DEVICE CHECK Zone Setting Status On CV DEVICE CHECK Zone ID 8 CV DEVICE CHECK Zone Setting Type Category VT CV DEVICE CHECK Rate 150 CV DEVICE CHECK Zone Setting Status Monitor CV DEVICE CHECK Zone ID 9 CV DEVICE CHECK Zone Setting Type Category VT CV DEVICE CHECK Zone Setting Status Inactive CV DEVICE CHECK Zone ID 10 CV DEVICE CHECK Date of Service 2024-09-26 CV DEVICE CHECK Anatomical Region Laterality Modality Device Interroga tion 09/13/2024 1:22 AM EDT Impressions 09/25/2024 5:46 AM EDT Normal Remote: No Events * Normal Device Function * Alerts or events: None * Battery: Battery is at 19%, * Sensing, impedance and thresholds reviewed * Programmed parameters reviewed * Presenting rhythm reviewed * Heart Rate Histograms reviewed * No significant changes noted Heart Failure Diagnostic: Stable * Heart failure diagnostics assessed through the device * Status: Stable * No overt HF present Narrative Procedure Note Jung Paz MD - 09/25/2024 IMPRESSION: Normal Remote: No Events * Normal Device Function * Alerts or events: None * Battery: Battery is at 19%, * Sensing, impedance and thresholds reviewed * Programmed parameters reviewed * Presenting rhythm reviewed * Heart Rate Histograms reviewed * No significant changes noted Heart Failure Diagnostic: Stable * Heart failure diagnostics assessed through the device * Status: Stable * No overt HF present us Jung Paz MD CV IMPLANTABLE CARDIAC DEV ICE PROCEDURES Final Result * External Diabetic Retina Eye Exam Report (04/14/2024) Anatomical Region Laterality Modality Ultrasound Provider [facility] IMG US PROCEDURES Final Result * Hepatitis C Screening (11/16/2013) Hepatitis C Screening Abstracted Historical Provider HEALTH MAINTENANCE Final Result from Last 3 Months or Most Recently Relevant to Health Maintenance [facility] [place] [phone] [employer] MEDICARE Care Teams Vp Hr Diversity Relationship Specialty Start Date End Date Gordon Shannon MD [address] [place] [id number] PCP - General Internal Medicine 08/17/17
== END 2024-11-14 13:18 | disposition home or self-care (01) ==
LOC: HO.HMGAL 13:31
PROVIDERS: PCP Internal Medicine; Visit Provider Registered Nurse Emergency
DX: J30.89 Other allergic rhinitis (principal)
CPT/HCPCS: 95117; 95165

== ENCOUNTER 2024-12-13 12:51 | Outpatient (AMB) | payer MEDICARE, SELFPAY ==
--- OUTSIDE RECORDS SUMMARY | 2024-12-13 15:18 | XMS_ITS | Encounter Summary ---
Author Organization [employer] Address [address] [place] [address] Care Team Providers Care Splunk Architect Name Role Phone Gordon Shannon MD Primary Care Provider Encounter Details Date Type Department Care Team (Late st Contact Info) Description 11/24/2024 Telephone [facility] - [facility] [address] [facility] [address] [place] [address] Briseida Hagen MA Social History Tobacco Use Types Packs/Day Years Used Date Smoking Tobacco: Former Smokeless Tobacco: Never Alcohol Use Standard Drinks/Week Comments No 0 (1 standard drink = 0.6 oz pur e alcohol) Sex and Gender Information Value Date Recorded Sex Assigned at Not on file Legal Sex Male 4:16 PM EST Gender Identity Not on file Sexual Orientation Not on file documented as of this encounter Progress Notes * Bailey Leal - 11/28/2024 8:48 AM EDT Attempted to call patient, no voicemail set up. * Briseida Hagen MA - 11/24/2024 3:18 PM EDT Please reschedule patient from missed device check documented in this encounter Plan of Treatment Upcoming Encounters Date Type Department Care Team (Late st Contact Info) Description 12/14/2024 11:00 AM EDT Ancillary Procedure [facility] Cardiology [facility] - [address] [place] [address] 04/18/2025 9:50 AM EST Office Visit [facility] - [address] [place] [address] Alec Hendrickson MD [address] [place] [address] [address] [place] [address] 05/24/2025 8:30 AM EST Office Visit Adult Medicine [address] [phone] Gordon Shannon MD [address] [place] [address] documented as of this encounter Visit Diagnoses Not on filedocumented in this encounter Care Teams Splunk Architect Relationship Specialty Start Date End Date Gordon Shannon MD [address] [place] [address] PCP - General Internal Medicine 08/17/17 documented as of this encounter
--- OUTSIDE RECORDS SUMMARY | 2024-12-13 15:18 | XMS_ITS | Clinical Summary ---
Author Organization [facility] [address] [place] [address] [address] [facility] [place] [address] Phone Care Team Providers Care Dye And Chemical Coordinator Name Role Phone Gordon Shannon MD Primary Care Provider [phone] Allergies Active Allergy Reactions Criticality Noted Date [...] tablet 1 TABLET DAILY Activ e omega 6-fll-skx-fish oil (Fish OiL) 1,200 (144-216) mg capsule 1 tab qd Active glipiZIDE (GLUCOTROL) 10 mg tablet Take 1 tablet (10 mg total) by mouth 2 (two) times a day before meals. 180 tablet 1 5 Active hydrocortisone 2.5 % cream Apply topically 2 (two) times a day if needed for irritation or rash. 30 g 2 5 06/10/19 26 Active metoprolol succinate (TOPROL-XL) 50 mg 24 [...] complication, without long-term current use of insulin ([facility] V24, [facility] V28) Inject 0.5 mL (3 mg total) under the skin every 7 (seven) days. 2 mL 5 5 Active nystatin (MYCOSTATIN) 100,000 unit/gram powder Apply topically 3 (three) times a day. 30 g 1 5 Active ketoconazole (NIZORAL) 2 % cream Apply topically 2 (two) times a day. 90 g 1 5 Active blood-glucose meter mis Use daily or as directed for monitoring of diabetes. 1 each 5 11/22/19 26 Active Contour Test Strips test strip Use to check blood sugars three times daily 300 each 1 5 11/23/19 26 Active lancets lancets Use to check blood sugar three times daily 300 each 1 5 11/23/19 26 Active apixaban (Eliquis) 5 mg tablet Take 1 tablet (5 mg total) by mouth 2 (two) times a day. 180 tablet 1 5 Active apixaban (Eliquis) 5 mg tablet Take 1 tablet (5 mg total) by mouth 2 (two) times a day. 180 tablet 1 5 12/06/19 25 Discontinu ed(Reorder ) glucose blood (Contour Test Strips) test strip Use as instructed 100 each 11 5 11/23/19 25 Discontinu ed(Reorder ) lancets lancets Use as instructed 100 each 5 11/23/19 25 Discontinu ed(Reorder ) Active Problems Problem Noted Date Diagnosed Date Mixed hyperlipidemia 02/16/2024 Overview (02/16/2024): Last Assessment & Plan: Last lipid panel from July 2021. Total cholesterol 110, triglycerides 222, HDL 32, LDL 34. Continue statin therapy and fenofibrate. Type II diabetes mellitus wi th renal manifestations ([facility] V24, [facility] V28) 02/16/2024 Abdominal aortic aneurysm (A AA), 30-34 mm diameter ([facility] V24) 09/01/2022 Overview (02/16/2024): 3.3 cm proximal AAA (on echo 08/26/22) Obstructive sleep apnea syndrome 05/02/2021 CKD (chronic kidney disease) stage 3, GFR 30-59 ml/min ([facility] V24, [facility] V28) 01/31/2019 Ischemic cardiomyopathy 03/02/2016 Overview (02/16/2024): [...] will improve. Tinea pedis 01/25/2013 Diabetic retinopathy ([facility] V24, [facility] V28) 02/26/2011 Overview (02/16/2024): Trace diabetic retinopathy OD per Dr. Sahffer on 01/13/2011 Erectile dysfunction 02/26/2011 Overview (02/16/2024): Noted on dictation of 04/04/2009 Dr.Philip Means. Microalbuminuria 02/26/2011 Nuclear sclerosis 02/26/2011 Overview (02/16/2024): 2+ nuclear sclerosis bilat per Dr. Shaffer on 01/13/2011. Old myocardial infarction 02/26/2011 Overview (02/16/2024): Per dictation of BOLIVAR Champion on 02/08/2009. Pt with anterior AR in 12/2005 followed by stenting of the LAD and 1 week later--stenting of RCA. Type II diabetes mellitus wi th ophthalmic manifestations ([facility] V24, [facility] V28) 02/26/2011 Essential hypertension, benign 09/09/2010 Overview (02/16/2024): Last Assessment & Plan: He is stable without any ischemic symptoms at this time and exercising regularly. 130/74 in office today, well-controlled. Increasing Entresto as above. Otherwise continue regimen as above. Encounters Date Type Department Care Team Description 11/24/2024 Telephone [facility] - [facility] [address] [facility] [address] [place] [address] Briseida Hagen MA 11/02/2024 9:45 AM EDT Office Visit Adult Medicine [address] [phone] Gordon Shannon MD Type 2 diabetes mellitus [...] complication, without long-term current use of insulin ([facility] V24, [facility] V28); Proteinuria, unspecified type; Rash 09/25/2024 6:00 AM EDT Ancillary Procedure [facility] - [address] [facility] [address] [place] [address] from Last 3 Months Immunizations [...] kidney disease) stage 3, GFR 30-59 ml/min (CMS/HCC V24, CMS/HCC V28) DX:CKD (chronic kidney disea se) stage 3, GFR 30-59 ml/min (HCC) Ischemic cardiomyopathy DX:Ische casper cardiomyopathy Family History [...] Description 12/14/2024 11:00 AM EDT Ancillary Procedure [facility] Cardiology [facility] - [address] [facility] [address] [place] [address] 04/18/2025 9:50 AM EST Office Visit [facility] Cardiology [facility] - [facility] [address] [facility] [address] [place] [phone] Alec Hendrickson MD [address] [place] [address] [address] [place] [address] 05/24/2025 8:30 AM EST Office Visit Adult Medicine [facility] [address] [place] [address] Gordon Shannon MD [address] [place] [phone] Health Maintenance Due Date Last Done Comments Diabetes: Annual Foot Exam 1962 RSV Immunization Adult Patients (1 - Risk 60-74 years 1-dose series) 2012 Colorectal Cancer Screening: FIT-DNA (Cologuard) 02/27/2022 Falls Risk Assessment 02/27/2022 Medicare Annual Wellness Visit 02/27/2022 Social Influencers of Health Screening 02/27/2022 Depression Screening 03/22/2024 COVID-19 Vaccine ( season) 2024 04/12/2021, 07/23/2020, 06/25/2020 Influenza Vaccine (#1) 2024 , 12/23/2022, 01/05/2022, [...] this topic Medical Devices Implanted Type Area Spindle Carver Device Identifier Shelf Expiration Date Model / Serial / Lot Reyes Iperia 7 Dr-T [id number] Implanted:06/20 (Quantity not on file) Cardiac ICD [employer] IPERIA 7 DR-T / [id number] / Procedures Procedure Name Priority Date/Time Associated Diagnosis Comments HEMOGLOBIN A1C Routine 11/02/2024 3:23 PM EDT Type 2 diabetes mellitus with diabetic microalbuminuria, without long-term current use of insulin (CMS/HCC V24, CMS/HCC V28) LIPID PANEL WITH REFLEX TO DIRECT [...] microalbuminuria, without long-term current use of insulin ([facility]/HCC V24, [facility]/HCC V28) CARDIAC DEVICE CHECK- REMOTE- MURJ Routine 09/25/2024 5:55 AM EDT EXTERNAL DIABETIC RETINA EYE EXAM 04/14/2024 HM HEPATITIS C SCREENING Routine 11/16/2013 from Last 3 Months or Most Recently Relevant to Health Maintenance Results * (ABNORMAL) Lipid panel with reflex to direct LDL (11/02/2024 3:23 PM EDT) Cholesterol 151 0 - 200 mg/dL LAB CHEMISTRY METHOD 11/02/2024 6:48 PM EDT [facility] Triglycerides 401(H) 0 - 150 mg/dL LAB CHEMISTRY METHOD 11/02/2024 6:48 PM EDT [facility] HDL 30(L) >=40 mg/dL LAB CHEMISTRY METHOD 11/02/2024 6:48 PM [facility] LDL Calculated 41 0 - 100 mg/dL LAB CHEMISTRY METHOD 11/02/2024 6:48 PM [facility] Comment: Unable to calculate when triglycerides >400 mg/dL. Estimated LDL Calculated using equation: Total cholesterol - HDL cholesterol - (Triglycerides/5) VLDL Cholesterol Constantin 80.2 mg/dL LAB CHEMISTRY METHOD 11/02/2024 6:48 PM EDT [facility] Comment:Unable to calculate when triglycerides >400 mg/dL. Non HDL Chol. (LDL+VLDL) 121 <145 mg/dL LAB CHEMISTRY METHOD 11/02/2024 6:48 PM [facility] Comment:Unable to calculate when triglycerides >400 mg/dL. Chol/HDL Ratio 5.0(H) 0.0 - 4.4 LAB CHEMISTRY METHOD 11/02/2024 6:48 PM EDT [facility] Blood Venous blood specimen / Unknown Venipuncture / Unknown 11/02/2024 3:23 PM EDT 11/02/2024 3:23 PM EDT us Gordon Shannon MD LAB BLOOD ORDERABLES Final Resu lt Performing Organization Address [facility]/ZIP Co de Phone Number [facility] [address] [place] [address], [place] [phone] * (ABNORMAL) Microalbumin creatinine urine ratio (11/02/2024 3:23 PM EDT) Creatinine, Urine 200.0 mg/dL LAB CHEMISTRY METHOD 11/02/2024 6:48 PM EDT [facility] Microalb, Ur 3,780.0(H ) 0.0 - 29.0 mg/L LAB CHEMISTRY METHOD 11/02/2024 6:48 PM EDT [facility] Microalb/Crea t Ratio 1,890(H) <30 mg/g creat LAB CHEMISTRY METHOD 11/02/2024 6:48 PM EDT [facility] Urine Urine specimen obtained by clean catch procedure / Unknown Non-blood Collection / Unknown 11/02/2024 3:23 PM EDT 11/02/2024 3:23 PM EDT us Gordon Shannon MD LAB URINE ORDERABLES Final Resu lt Performing Organization Address City/[facility]/ZIP Co de Phone Number [facility] [address] [place] [address], [place] [phone] * (ABNORMAL) Hemoglobin A1c (11/02/2024 3:23 PM EDT) Hemoglobin A1C 8.5(H) <6.5 % LAB CHEMISTRY METHOD 11/02/2024 9:41 PM EDT [facility] Mean Bld Glu Estim. 197 mg/dL LAB CHEMISTRY METHOD 11/02/2024 9:41 PM T [facility] Blood Venous blood specimen / Unknown Venipuncture / Unknown 11/02/2024 3:23 PM EDT 11/02/2024 3:23 PM EDT us Gordon Shannon MD LAB BLOOD ORDERABLES Final Resu lt [facility] [address] [place] [address], [place] [phone] * (ABNORMAL) Comprehensive metabolic panel (11/02/2024 3:23 PM EDT) Sodium 137 133 - 145 mmol/L LAB CHEMISTRY METHOD 11/02/2024 6:46 PM [facility] Potassium 4.7 3.5 - 5.5 mmol/L LAB CHEMISTRY METHOD 11/02/2024 6:46 PM [facility] Chloride 108 96 - 110 mmol/L LAB CHEMISTRY METHOD 11/02/2024 6:46 PM [facility] CO2 24 21 - 32 mmol/L LAB CHEMISTRY METHOD 11/02/2024 6:46 PM [facility] Anion Gap 5 3 - 11 LAB CHEMISTRY METHOD 11/02/2024 6:46 PM [facility] Glucose 197(H) 70 - 100 mg/dL LAB CHEMISTRY METHOD 11/02/2024 6:46 PM [facility] BUN 29(H) 5 - 25 mg/dL LAB CHEMISTRY METHOD 11/02/2024 6:46 PM [facility] Creatinine 1.64(H) 0.70 - 1.30 mg/dL LAB CHEMISTRY METHOD 11/02/2024 6:46 PM [facility] eGFR 44(L) >=60 mL/min/1. 73m2 LAB CHEMISTRY METHOD 11/02/2024 6:46 PM EDT [facility] Comment:Calculation based on the Chronic Kidney Disease Epidemiology Collaboration (CKD-EPI) equation refit without adjustment for race. BUN/Creatinine Ratio 17.7 LAB CHEMISTRY METHOD 11/02/2024 6:46 PM EDT [facility] Calcium 9.6 8.5 - 10.5 mg/dL LAB CHEMISTRY METHOD 11/02/2024 6:46 PM EDT [facility] AST (SGOT) 23 10 - 42 unit/L LAB CHEMISTRY METHOD 11/02/2024 6:46 PM [facility] ALT (SGPT) 35 10 - 60 unit/L LAB CHEMISTRY METHOD 11/02[facility]2024 6:46 PM [facility] Alkaline Phosphatase 51 42 - 121 unit/L LAB CHEMISTRY METHOD 11/02/2024 6:46 [facility] Total Protein 7.2 6.0 - 8.0 g/dL LAB CHEMISTRY METHOD 11/02/2024 6:46 PM EDT [facility] Albumin 4.0 3.2 - 5.0 g/dL LAB CHEMISTRY METHOD 11/02/2024 6:[facility] Total Bilirubin 0.3 0.0 - 1.4 mg/dL LAB CHEMISTRY METHOD 11/02/2024 6:46 PM EDT [facility] Blood Venous blood specimen / Unknown Venipuncture / Unknown 11/02/2024 3:23 PM EDT 11/02/2024 3:23 PM EDT us Gordon Shannon MD LAB BLOOD ORDERABLES Final Resu lt [facility] [address] [place] [address], * Cardiac device check - Remote- MURJ (09/25/2024 5:55 AM EDT) Date Time Interrogation Session [id number] CV DEVICE CHECK Type Interrogation Session RemoteScheduled CV DEVICE CHECK Implantable Pulse Generator Spindle Carver BIO CV DEVICE CHECK Implantable Pulse Generator Type ICD CV DEVICE CHECK Implantable Pulse Generator Model Iperia 7 DR-T CV DEVICE CHECK Implantable Pulse Generator Serial Number [id number] CV DEVICE CHECK Implantable Pulse Generator Implant Date [id number] CV DEVICE CHECK Battery Remaining Percentage 19.00 CV DEVICE CHECK Battery Voltage 2.970 CV D EVICE CHECK Battery PAINTER Trigger 2.850 CV DEVICE CHECK Battery Status Middle of Service CV DEVICE CHECK Capacitor Charge Time 11.900 CV DEVICE CHECK Fidel Statistic RA Percent Paced 0.00 CV DEVICE CHECK Fidel Statistic RV Percent Paced 8.00 CV DEVICE CHECK Atrial Tachy Statistic AT/AF [place] Percent 0.00 CV DEVICE CHECK Lead Channel [...] Maximum Sensor Rate 120 CV DEVICE CHECK Fiedl Setting PAV Delay 180 CV DEVICE CHECK [...] Status: Stable * No overt HF present Jung Paz MD CV IMPLANTABLE CARDIAC DEV ICE PROCEDURES Final Result * External Diabetic Retina Eye Exam Report (04/14/2024) Anatomical Region Laterality Modality Ultrasound Provider [facility] IMG US PROCEDURES Final Result * Hepatitis C Screening (11/16/2013) Hepatitis C Screening Abstracted Historical Provider HEALTH MAINTENANCE Final Result from Last 3 Months or Most Recently Relevant to Health Maintenance Insurance [employer] MEDICARE Care Teams Dye And Chemical Coordinator Relationship Specialty Start Date End Date Gordon Shannon MD [address] [place] [address] [place] [phone] PCP - General Internal Medicine 08/17/17
--- OUTSIDE RECORDS SUMMARY | 2024-12-13 15:18 | XMS_ITS | Clinical Summary ---
Author Organization [facility] Address [address] [place] [address] Care Team Providers Care Blueprint Reproducer Name Role Phone Gordon Shannon MD Primary Care Provider [phone] Allergies No known active allergies Medications Medication Sig Dispensed Refills Start Date End Date Status fenofibrate (TRICOR,LOFIBRA) tablet 54 mg Take 54 mg by mouth daily. 1 01/18/2019 Active ergocalciferol (VITAMIN D2) capsule 70090 units TAKE 1 CAPSULE BY MOUTH ONCE [...] (RELION PEN NEEDLES) 31G X 6 MM [facility] USE 1 PEN NEEDLE ONCE DAILY WITH VICTOZA PEN 0 01/30/2019 Active [place]-3 Fatty Acids (FISH OIL) 1200 MG CAPS [...] age to complete this topic Care Teams Blueprint Reproducer Relationship Specialty Start Date End Date Gordon Shannon MD PCP - General Internal Medicine 01/31/19
== END 2024-12-13 13:06 | disposition home or self-care (01) ==
LOC: HO.HMGAL 12:51
PROVIDERS: PCP Internal Medicine; Visit Provider Registered Nurse Emergency
DX: J30.89 Other allergic rhinitis (principal)
CPT/HCPCS: 95117; 95165

== ENCOUNTER 2025-01-17 11:10 | Outpatient (AMB) | payer MEDICARE, SELFPAY ==
--- OUTSIDE RECORDS SUMMARY | 2025-01-17 14:06 | XMS_ITS | Clinical Summary ---
Author Organization [facility] Address [address] [place] [address] Care Team Providers Care Clinical Assistant Professor Name Role Phone oGrdon Shannon MD Primary Care Provider [phone] Allergies No known active allergies Medications Medication Sig Dispensed Refills Start Date End Date Status fenofibrate (TRICOR,LOFIBRA) tablet 54 mg Take 54 mg by mouth daily. 1 01/18/2019 Active ergocalciferol (VITAMIN D2) capsule 43890 units TAKE 1 CAPSULE BY MOUTH ONCE [...] PEN NEEDLES) 31G X 6 MM [facility] USE 1 PEN NEEDLE ONCE DAILY WITH VICTOZA PEN 0 01/30/2019 Active [place]-3 Fatty Acids (FISH OIL) 1200 MG CAPS [...] age to complete this topic Care Teams Clinical Assistant Professor Relationship Specialty Start Date End Date Gordon Shannon MD PCP - General Internal Medicine 01/31/19
== END 2025-01-17 11:11 | disposition home or self-care (01) ==
LOC: HO.HMGAL 11:10
PROVIDERS: PCP Internal Medicine; Visit Provider Registered Nurse Emergency
DX: J30.89 Other allergic rhinitis (principal)
CPT/HCPCS: 95117; 95165

== ENCOUNTER 2025-02-12 11:13 | Outpatient (AMB) | payer MEDICARE, SELFPAY ==
--- OUTSIDE RECORDS SUMMARY | 2025-02-12 14:34 | XMS_ITS | Clinical Summary ---
Author Organization [facility] Address [address] [place] [address] Care Team Providers Care Travel Money Advisor Name Role Phone Gordon Shannon MD Primary Care Provider [phone] Allergies No known active allergies Medications Medication Sig Dispensed Refills Start Date End Date Status fenofibrate (TRICOR,LOFIBRA) tablet 54 mg Take 54 mg by mouth daily. 1 01/18/2019 Active ergocalciferol (VITAMIN D2) capsule 95460 units TAKE 1 CAPSULE BY MOUTH ONCE [...] (RELION PEN NEEDLES) 31G X 6 MM [facility] USE 1 PEN NEEDLE ONCE DAILY WITH VICTOZA PEN 0 01/30/2019 Active [place]-3 Fatty Acids (FISH OIL) 1200 MG CAPS [...] age to complete this topic Care Teams Travel Money Advisor Relationship Specialty Start Date End Date Gordon Shannon MD PCP - General Internal Medicine 01/31/19
--- OUTSIDE RECORDS SUMMARY | 2025-02-12 14:35 | XMS_ITS | Clinical Summary ---
Author Organization [facility] [address] [facility] Address [address] [place] [address] Phone Care Team Providers Care Junior Sales Representative Name Role Phone Gordon Shannon MD Primary Care Provider [phone] Allergies Active Allergy Reactions Criticality Noted Date Comments Pollen Extracts 05/12/2022 Medications nystatin, bulk, 10 billion unit powder APPLY TO AFFECTED AREA THREE TIMES DAILY 01/12/20 24 Active hydrOXYzine HCL (ATARAX) 25 mg tablet Take 1 Tablet by mouth 3 times daily as needed for Anxiety (insomnia). 01/12/20 24 Active OneTouch Ultra Test test strip USE TO CHECK GLUOSE LEVEL ONCE A DAY 05/28/19 24 Active diclofenac (VOLTAREN) 1 % topical gel Apply 1 g topically 4 times daily as needed (hand pain). 10/02/19 23 Active ONETOUCH ULTRASOFT LANCETS MISC Test 3 x daily 08/21/19 20 Active pen needle, diabetic 32 gauge x /32 needle Use once a week with ozempic 08/17/19 20 Active aspirin 81 mg EC tablet 1 TABLET DAILY Activ e omega 6-jkq-zav-fish oil (Fish OiL) 1,200 (144-216) mg capsule 1 tab qd Active hydrocortisone 2.5 % cream Apply topically 2 (two) times a day if needed for irritation or rash. 30 g 2 06/10/19 25 026 Active metFORMIN (GLUCOPHAGE) 1,000 mg tablet Take 1 tablet (1,000 mg total) by mouth 2 (two) times a day with meals. 180 tablet 1 10/04/19 25 Active dulaglutide (TRULICITY) 3 mg/0.5 mL pen injector injectionIndic ations:Type 2 diabetes mellitus with other diabetic kidney complication, without long-term current use of insulin ([facility] V24, [facility] V28) Inject 0.5 mL (3 mg total) under the skin every 7 (seven) days. 2 mL 5 11/03/19 25 Active ketoconazole (NIZORAL) 2 % cream Apply topically 2 (two) times a day. 90 g 1 11/03/19 25 Active blood-glucose meter misc Use daily or as directed for monitoring of diabetes. 1 each 11/22/19 25 026 Active Contour Test Strips test strip Use to check blood sugars three times daily 300 each 1 11/24/19 25 026 Active lancets lancets Use to check blood sugar three times daily 300 each 1 11/24/19 25 026 Active apixaban (Eliquis) 5 mg tablet Take 1 tablet (5 mg total) by mouth 2 (two) times a day. 180 tablet 1 12/06/19 25 Active sacubitriL-delmis sartan (ENTRESTO) 49-51 mg per tablet TAKE 1 TABLET BY MOUTH EVERY 12 HOURS 180 tablet 12/23/19 25 Active fenofibrate (LOFIBRA) 54 mg tablet TAKE 1 TABLET(54 MG) BY MOUTH 1 TIME EACH DAY 90 tablet 1 12/26/19 25 Active metoprolol succinate (TOPROL-XL) 50 mg 24 hr tablet TAKE 1 TABLET(50 MG) BY MOUTH 1 TIME EACH DAY 90 tablet 1 12/26/19 25 Active glipiZIDE (GLUCOTROL) 10 mg tablet TAKE 1 TABLET BY MOUTH TWICE DAILY BEFORE MEALS 180 tablet 1 12/26/19 25 Active nystatin (MYCOSTATIN) 100,000 unit/gram powder Apply topically 3 (three) times a day. 30 g 1 01/05/20 25 Active atorvastatin (LIPITOR) 40 mg tablet TAKE 1 TABLET BY MOUTH DAILY 90 tablet 1 01/25/20 25 Active atorvastatin (LIPITOR) 40 mg tablet TAKE 1 TABLET BY MOUTH DAILY 90 tablet 1 09/02/19 25 025 Discontinued Active Problems Problem Noted Date Diagnosed Date Mixed hyperlipidemia 02/16/2024 Overview (02/16/2024): Last Assessment & Plan: Last lipid panel from July 2021. Total cholesterol 110, triglycerides 222, HDL 32, LDL 34. Continue statin therapy and fenofibrate. Type II diabetes mellitus wi th renal manifestations ([facility] V24, [facility] V28) 02/16/2024 Abdominal aortic aneurysm (A AA), 30-34 mm diameter ([facility] V24) 09/01/2022 Overview (02/16/2024): 3.3 cm proximal AAA (on echo 08/26/22) Obstructive sleep apnea syndrome 05/02/2021 CKD (chronic kidney disease) stage 3, GFR 30-59 ml/min ([facility] V24, [facility] V28) 01/31/2019 Ischemic cardiomyopathy 03/02/2016 [...] will improve. Tinea pedis 01/25/2013 Diabetic retinopathy ([facility] V24, [facility] V28) 02/26/2011 Overview (02/16/2024): Trace diabetic retinopathy OD per Dr. Shaffer on 01/13/2011 Erectile dysfunction 02/26/2011 Overview (02/16/2024): Noted on dictation of 04/04/2009 Dr.Philip Means. Microalbuminuria 02/26/2011 Nuclear sclerosis 02/26/2011 Overview (02/16/2024): 2+ nuclear sclerosis bilat per Dr. Shaffer on 01/13/2011. Old myocardial infarction 02/26/2011 Overview (02/16/2024): Per dictation of BOLIVAR Champion on 02/08/2009. Pt with anterior MA in 12/2005 followed by stenting of the LAD and 1 week later--stenting of RCA. Type II diabetes mellitus wi th ophthalmic manifestations ([facility] V24, [facility] V28) 02/26/2011 Essential hypertension, benign 09/09/2010 Overview (02/16/2024): Last Assessment & Plan: He is stable without any ischemic symptoms at this time and exercising regularly. 130/74 in office today, well-controlled. Increasing Entresto as above. Otherwise continue regimen as above. Encounters Date Type Department Care Team Description 12/18/2024 9:20 PM EDT Ancillary Procedure [facility] Cardiology [facility] [address] [place] [address] 12/14/2024 11:00 AM EDT Ancillary Procedure [facility] Cardiology [facility] - [address] [place] [address] Encounter for adjustment or management of cardiac device 11/24/2024 Telephone [facility] Cardiology [facility] - [address] [place] [address] Briseida Hagen MA from Last 3 Months Immunizations Immunization Administration Dates Next Due H1N1 Inj Preservative [...] disea se) stage 3, GFR 30-59 ml/min ([facility]) Ischemic cardiomyopathy DX:Ische casper cardiomyopathy Family History [...] Care Team (Late st Contact Info) Description 04/18/2025 9:50 AM EST Office Visit [facility] [address] [facility] [address] [place] [address] Alec Hendrickson MD [address] [place] [address] [facility] [address] [place] [address] 05/24/2025 8:30 AM EST Office Visit Adult Medicine [address] [phone] Gordon Shannon MD [address] [place] [phone] 2025 10:00 AM EDT Ancillary Procedure [facility] Cardiology [facility] [address] [facility] [address] [place] [address] Health Maintenance Due Date Last Done Comments Diabetes: Annual Foot Exam 1962 RSV Immunization Adult Patients (1 - Risk 50-74 years 1-dose series) 2002 Colorectal Cancer Screening: FIT-DNA (Cologuard) 02/27/2022 Falls Risk Assessment 02/27/2022 Medicare Annual Wellness Visit 02/27/2022 Social Influencers of Health Screening 02/27/2022 Depression Screening 03/22/2024 COVID-19 Vaccine (4 - 2025-26 season) 2024 04/12/2021, 07/23/2020, 06/25/2020 Diabetes: Annual Retina Eye Exam 04/14/2025 04/14/2024 [...] 11/16/2013 Zoster Vaccines Completed 10/06/2017, 04/23, 04/26/2016 Abdominal Aortic Aneurysm (AAA) Screen Discontinued 08/26/2022, 08/26/2022 Pneumococcal Vaccine: 50+ Years Completed 06/14/2023, 05/12/2022, 01/30/2019, Additional history exists Influenza Vaccine Completed 12/07/2024, , 12/23/2022, Additional history exists HIB Vaccines Aged Out [...] this topic Medical Devices Implanted Type Area Blunger Loader Device Identifier Shelf Expiration Date Model / Serial / Lot Reyes Iperia 7 -T [id number] Implanted:06/20 (Quantity not on file) Cardiac ICD [employer] IPERIA 7 -T / [id number] / Procedures Procedure Name Priority Date/Time Associated Diagnosis Comments CARDIAC DEVICE CHECK- REMOTE- MURJ Routine 12/18/2024 9:18 PM EDT CARDIAC DEVICE CHECK- IN CLINIC- MURJ Routine 12/14/2024 11:01 AM EDT Encounter for adjustment or management of cardiac device MICROALBUMIN CREATININE URINE RATIO Routine 11/02/2024 3:23 PM EDT Microalbuminuria Type 2 diabetes mellitus with diabetic microalbuminuria, without long-term current use of insulin (CMS/HCC V24, CMS/HCC V28) COMPREHENSIVE METABOLIC PANEL Routine 11/02/2024 3:23 PM EDT Stage 3 chronic kidney disease, unspecified whether stage 3a or 3b CKD (CMS/HCC V24, CMS/HCC V28) Essential hypertension, benign Encounter for long-term (current) use of medications HEMOGLOBIN A1C Routine 11/02/2024 3:23 PM EDT Type 2 diabetes mellitus with diabetic microalbuminuria, without long-term current use of insulin (CMS/HCC V24, CMS/HCC V28) LIPID PANEL WITH REFLEX TO DIRECT LDL Routine 11/02/2024 3:23 PM EDT Pure hypercholesterolemia EXTERNAL DIABETIC RETINA EYE EXAM 04/14/2024 ABDOMINAL AORTIC ANEURYSM SCRREN Routine 08/26/2022 HEPATITIS C SCREENING Routine 11/16/2013 from Last 3 Months or Most Recently Relevant to Health Maintenance Results * Cardiac device check - Remote- MURJ (12/18/2024 9:18 PM EDT) Date Time Interrogation Session [id number] CV DEVICE CHECK Type Interrogation Session RemoteScheduled CV DEVICE CHECK Implantable Pulse Generator Blunger Loader BIO CV DEVICE CHECK Implantable Pulse Generator Type ICD CV DEVICE CHECK Implantable Pulse Generator Model Iperia 7 DR-T CV DEVICE CHECK Implantable Pulse Generator Serial Number [id number] CV DEVICE CHECK Implantable Pulse Generator Implant Date 20160629 CV DEVICE CHECK Battery Remaining Percentage 15.00 CV DEVICE CHECK Battery Voltage 2.950 CV D EVICE CHECK Battery [employer] Trigger 2.850 CV DEVICE CHECK Battery Status Middle of Service CV DEVICE CHECK Capacitor Charge Time 12.300 CV DEVICE CHECK Fidel Statistic RA Percent Paced 0.00 CV DEVICE CHECK Fidel Statistic RV Percent Paced 9.00 CV DEVICE CHECK Atrial Tachy Statistic AT/AF [place] Percent 0.00 CV DEVICE CHECK Lead Channel Sensing Intrinsic Amplitude 3.800 CV DEVICE CHECK Lead Channel Setting Sensing Sensitivity 0.40 CV DEVICE CHECK Lead Channel Impedance Value 578 CV DEVICE CHECK Lead Channel Pacing Threshold Amplitude 0.800 CV DEVICE CHECK Lead Channel Pacing Threshold Pulse Width 0.4 CV DEVICE CHECK Lead Channel RA Pacing Threshold Date 2024-12-13 CV DEVICE CHECK Lead Channel Setting Pacing Amplitude 1.800 CV DEVICE CHECK Lead Channel Setting Pacing Pulse Width 0.4 CV DEVICE CHECK Lead Channel Sensing Intrinsic Amplitude 11.100 CV DEVICE CHECK Lead Channel Setting Sensing Sensitivity 0.80 CV DEVICE CHECK Lead Channel Impedance Value 520 CV DEVICE CHECK Lead Channel Pacing Threshold Amplitude 0.500 CV DEVICE CHECK Lead Channel Pacing Threshold Pulse Width 0.4 CV DEVICE CHECK Lead Channel RV Pacing Threshold Date 2024-12-13 CV DEVICE CHECK Lead Channel Setting Pacing [...] 0 CV DEVICE CHECK Shock Measured Impedance 90 CV DEVICE CHECK Zone Setting Type Category [...] 10 CV DEVICE CHECK Date of Service 2024-12-26 CV DEVICE CHECK Anatomical Region Laterality Modality Device Interroga tion 12/13/2024 1:11 AM EDT Impressions 12/18/2024 7:19 PM EDT Normal Remote: No Events * Normal Device Function * Alerts or events: None * Battery: Battery is at 15%, * Sensing, impedance and thresholds reviewed * Programmed parameters reviewed * Presenting rhythm reviewed * Heart Rate Histograms reviewed * No significant changes noted Heart Failure Diagnostic: Stable * Heart failure diagnostics assessed through the device * Status: Stable * No overt HF present Narrative Procedure Note Jung Paz MD - 12/18/2024 IMPRESSION: Normal Remote: No Events * Normal Device Function * Alerts or events: None * Battery: Battery is at 15%, * Sensing, impedance and thresholds reviewed * Programmed parameters reviewed * Presenting rhythm reviewed * Heart Rate Histograms reviewed * No significant changes noted Heart Failure Diagnostic: Stable * Heart failure diagnostics assessed through the device * Status: Stable * No overt HF present Jung Paz MD CV IMPLANTABLE CARDIAC DEV ICE PROCEDURES Final Result * CARDIAC DEVICE CHECK- IN [facility]- [facility] (12/14/2024 11:01 AM EDT) Date Time Interrogation Session [id number] CV DEVICE CHECK Implantable Pulse Generator Blunger Loader BIO CV DEVICE CHECK Implantable Pulse Generator Type ICD CV DEVICE CHECK Implantable Pulse Generator Model Iperia 7 DR-T CV DEVICE CHECK Implantable Pulse Generator Serial Number [id number] CV DEVICE CHECK Implantable Pulse Generator Implant Date 20160629 CV DEVICE CHECK Battery Voltage 2.950 CV D EVICE CHECK Battery Status Middle of Service CV DEVICE CHECK Fidel Statistic RV Percent Paced 9.00 CV DEVICE CHECK Lead Channel Sensing Intrinsic Amplitude 4.100 CV DEVICE CHECK Lead Channel Setting Sensing Sensitivity 0.40 CV DEVICE CHECK Lead Channel Impedance Value 607 CV DEVICE CHECK Lead Channel Pacing Threshold Amplitude 0.700 CV DEVICE CHECK Lead Channel Pacing Threshold Pulse Width 0.4 CV DEVICE CHECK Lead Channel Setting Pacing Amplitude 1.700 CV DEVICE CHECK Lead Channel Setting Pacing Pulse Width 0.4 CV DEVICE CHECK Lead Channel Sensing Intrinsic Amplitude 14.000 CV DEVICE CHECK Lead Channel Setting Sensing Sensitivity 0.80 CV DEVICE CHECK Lead Channel Impedance Value 563 CV DEVICE CHECK Lead Channel Pacing Threshold Amplitude 0.500 CV DEVICE CHECK Lead Channel Pacing Threshold Pulse Width 0.4 CV DEVICE CHECK Lead Channel Setting Pacing [...] 0 CV DEVICE CHECK Shock Measured Impedance 86 CV DEVICE CHECK Zone Setting Type Category VT CV DEVICE CHECK Rate 150 CV DEVICE CHECK Zone Setting Status Monitor CV DEVICE CHECK Zone ID 7 CV DEVICE CHECK Zone Setting Type Category VF CV DEVICE CHECK Rate 200 CV DEVICE CHECK Therapies Burst, 40J, 40J, 40J x 6 CV DEVICE CHECK Zone Setting Status On CV DEVICE CHECK Zone ID 8 CV DEVICE CHECK Date of Service 2025-11-22 CV DEVICE CHECK Anatomical Region Laterality Modality Device Interroga tion 12/14/2024 Impressions 12/18/2024 7:19 PM EDT Normal In-Office: No Events * Normal Device Function * Alerts or events: None * Battery: MOS, 15% * Sensing, impedance and thresholds reviewed and tested * Presenting Rhythm: -VS 70s * Heart Rate Histograms reviewed * Pacing and Detection Parameters were evaluated Heart Failure Diagnostic: Stable * Heart failure diagnostics assessed through the device * Status: Stable * No overt HF present Narrative Procedure Note Jung Paz MD - 12/18/2024 IMPRESSION: Normal In-Office: No Events * Normal Device Function * Alerts or events: None * Battery: MOS, 15% * Sensing, impedance and thresholds reviewed and tested * Presenting Rhythm: -VS 70s * Heart Rate Histograms reviewed * Pacing and Detection Parameters were evaluated Heart Failure Diagnostic: Stable * Heart failure diagnostics assessed through the device * Status: Stable * No overt HF present us Order Referral Cardiovascular CV IMPLANTABLE CAR DIAC DEVICE PROCEDURES Final Result * (ABNORMAL) Lipid panel with reflex to direct LDL (11/02/2024 3:23 PM EDT) Cholesterol 151 0 - 200 mg/dL LAB [facility] Triglycerides 401(H) 0 - 150 mg/dL LAB CHEMISTRY METHOD 11/02/2024 6:[address] [facility] HDL 30(L) >=40 mg/dL LAB CHEMISTRY METHOD 11/02/2024 6:[address] [facility] LDL Calculated 41 0 - 100 mg/dL LAB CHEMISTRY METHOD 11/02/2024 6:48 PM T [facility] Comment: Unable to calculate when triglycerides >400 mg/dL. Estimated LDL Calculated using equation: Total cholesterol - HDL cholesterol - (Triglycerides/5) VLDL Cholesterol Constantin 80.2 mg/dL LAB CHEMISTRY METHOD 11/02/2024 6:48 PM T [facility] Comment:Unable to calculate when triglycerides >400 mg/dL. Non HDL Chol. (LDL+VLDL) 121 <145 mg/dL LAB CHEMISTRY METHOD 11/02/2024 6:[address] [facility] Comment:Unable to calculate when triglycerides >400 mg/dL. Chol/HDL Ratio 5.0(H) 0.0 - 4.4 LAB CHEMISTRY METHOD 11/02/2024 6:[address] [facility] Blood Venous blood specimen / Unknown Venipuncture / Unknown 11/02/2024 3:23 PM EDT 11/02/2024 3:23 PM EDT us Gordon Shannon MD LAB BLOOD ORDERABLES Final Resu lt [facility] [address] [place] [address], [place] [phone] * (ABNORMAL) Microalbumin creatinine urine ratio (11/02/2024 3:23 PM EDT) Creatinine, Urine 200.0 mg/dL LAB CHEMISTRY METHOD 11/02/2024 6:48 PM EDT [facility] Microalb, Ur 3,780.0(H ) 0.0 - 29.0 mg/L LAB CHEMISTRY METHOD 11/02/2024 6:48 PM EDT [facility] Microalb/Crea t Ratio 1,890(H) <30 mg/g creat LAB CHEMISTRY METHOD 11/02/2024 6:48 PM EDT [facility] Urine Urine specimen obtained by clean catch procedure / Unknown Non-blood Collection / Unknown 11/02/2024 3:23 PM EDT 11/02/2024 3:23 PM EDT us Gordon Shannon MD LAB URINE ORDERABLES Final Resu lt [facility] [address] [place] [address], [place] [phone] * (ABNORMAL) Hemoglobin A1c (11/02/2024 3:23 PM EDT) Hemoglobin A1C 8.5(H) <6.5 % LAB CHEMISTRY METHOD 11/02/2024 9:41 PM EDT [facility] Mean Bld Glu Estim. 197 mg/dL LAB CHEMISTRY METHOD 11/02/2024 9:41 PM EDT [facility] Blood Venous blood specimen / Unknown Venipuncture / Unknown 11/02/2024 3:23 PM EDT 11/02/2024 3:23 PM EDT us Gordon Shannon MD LAB BLOOD ORDERABLES Final Resu lt [facility] [address] [place] [address], [place] [phone] * (ABNORMAL) Comprehensive metabolic panel (11/02/2024 3:23 PM EDT) Sodium 137 133 - 145 mmol/L LAB CHEMISTRY METHOD 11/02/2024 6:46 PM EDT [facility] Potassium 4.7 3.5 - 5.5 mmol/L LAB CHEMISTRY METHOD 11/02/2024 6:46 PM EDT [facility] Chloride 108 96 - 110 mmol/L LAB CHEMISTRY METHOD 11/02/2024 6:46 PM T [facility] CO2 24 21 - 32 mmol/L LAB CHEMISTRY METHOD 11/02/2024 6:46 PM EDT [facility] Anion Gap 5 3 - 11 LAB CHEMISTRY METHOD 11/02/2024 6:[address] [facility] Glucose 197(H) 70 - 100 mg/dL LAB CHEMISTRY METHOD 11/02/2024 6:[address] [facility] BUN 29(H) 5 - 25 mg/dL LAB CHEMISTRY METHOD 11/02/2024 6:46 PM T [facility] Creatinine 1.64(H) 0.70 - 1.30 mg/dL LAB CHEMISTRY METHOD 11/02/2024 6:46 PM EDT [facility] eGFR 44(L) >=60 mL/min/1. 73m2 LAB CHEMISTRY METHOD 11/02/2024 6:46 PM EDT [facility] Comment:Calculation based on the Chronic Kidney Disease Epidemiology Collaboration (CKD-EPI) equation refit without adjustment for race. BUN/Creatinine Ratio 17.7 LAB CHEMISTRY METHOD 11/02/2024 6:46 PM EDT [facility] Calcium 9.6 8.5 - 10.5 mg/dL LAB CHEMISTRY METHOD 11/02/2024 6:46 PM EDT [facility] AST (SGOT) 23 10 - 42 unit/L LAB CHEMISTRY METHOD 11/02/2024 6:[address] [facility] ALT (SGPT) 35 10 - 60 unit/L LAB CHEMISTRY METHOD 11/02/2024 6:46 PM EDT [facility] Alkaline Phosphatase 51 42 - 121 unit/L LAB CHEMISTRY METHOD 11/02/2024 6:46 PM T [facility] Total Protein 7.2 6.0 - 8.0 g/dL LAB CHEMISTRY METHOD 11/02/2024 6:[address] [facility] Albumin 4.0 3.2 - 5.0 g/dL LAB CHEMISTRY METHOD 11/02/2024 6:46 PM T [facility] Total Bilirubin 0.3 0.0 - 1.4 mg/dL LAB CHEMISTRY METHOD 11/02/2024 6:[address] [facility] Blood Venous blood specimen / Unknown Venipuncture / Unknown 11/02/2024 3:23 PM EDT 11/02/2024 3:23 PM EDT us Gordon Shannon MD LAB BLOOD ORDERABLES Final Resu lt [facility] [address] [place] [address], [place] [phone] * External Diabetic Retina Eye Exam Report (04/14/2024) Anatomical Region Laterality Modality Ultrasound us Provider [facility] US PROCEDURES Final Result * Abdominal Aortic Aneurysm Screen (08/26/2022) Abdominal Aortic Aneurysm (AAA) Screening Abstracted Anatomical Region Laterality Modality Other us Historical Provider HEALTH MAINTENANCE Final Result * Hepatitis C Screening (11/16/2013) Hepatitis C Screening Abstracted Historical Provider HEALTH MAINTENANCE Final Result from Last 3 Months or Most Recently Relevant to Health Maintenance Insurance [employer]ARE Care Teams Junior Sales Representative Relationship Specialty Start Date End Date Gordon Shannon MD [address] [place] [phone] PCP - General Internal Medicine 08/17/17
--- OUTSIDE RECORDS SUMMARY | 2025-02-12 14:35 | XMS_ITS | Clinical Summary ---
Author Organization [facility] Address [address] [address] Phone Care Team Providers Care Cigar Sorter Name Role Phone Gordon Shannon MD Primary Care Provider [phone] Medications aspirin ([facility]) 81 MG EC tablet Take 81 mg by mouth 1 (one) time each day Active APIXABAN PO Take 5 mg by mouth Active fenofibrate (TRICOR) 54 MG tablet Take 54 mg by mouth 1 (one) time each day Active metoprolol succinate XL (TOPROL XL) 50 MG 24 hr tablet Take 50 mg by mouth 1 (one) time each day Do not crush or chew. Active atorvastatin (LIPITOR) 40 MG tablet Take 40 mg by mouth 1 (one) time each day Active glipiZIDE (GLUCOTROL XL) 5 MG 24 hr tablet Take 5 mg by mouth 1 (one) time each day Do not crush, chew, or split. Active sacubitril-vals luca (Entresto) 49-51 MG per tablet Take 1 tablet by mouth in the morning and 1 tablet in the evening. Active metFORMIN (FORTAMET) 1000 MG 24 hr tablet Take 1,000 mg by mouth 1 (one) time each day with dinner Do not crush, chew, or split. Active Dulaglutide 1.5 MG/0.5ML solution pen-injector Inject under the skin Active Active Problems Problem Noted Date Diagnosed Date Ischemic cardiomyopathy 09/14/2023 Proteinuria 09/14/2023 Nuclear sclerosis 09/14/2023 Male erectile dysfunction 09/14/2023 Old myocardial infarction 09/14/2023 Diabetes mellitus with renal manifestations, type II or unspecified type, not stated as uncontrolled 09/14/2023 Obstructive sleep apnea 09/14/2023 Chronic kidney disease stage 3 09/14/2023 Tinea pedis 09/14/2023 Mixed hyperlipidemia 09/14/2023 Social History Tobacco Use Types Packs/Day Years Used Date Smoking Tobacco: Never Assessed Sex and Gender Information Value Date Recorded Sex Assigned at Not on file Legal Sex Male 3:28 PM EDT Gender Identity Not on file Sexual Orientation Not on file Plan of Treatment Upcoming Encounters Date Type Department Care Team (Late st Contact Info) Description 03/29/2025 9:30 AM EST [facility] [address] [facility] [address] [place] [address] Bari Rhodes MD [address] [facility] [address] [place] [address] Health Maintenance Due Date Last Done Comments Colorectal Cancer Screening: Annual FOBT 2001 Colorectal Cancer Screening: Colonoscopy 2001 Colorectal Cancer Screening: Sigmoidoscopy 2001 Diabetes: Pedal Pulse Checked 09/14/2023 Diabetes: Sensory Foot Exam 09/14/2023 Diabetes: Visual Foot Exam 09/14/2023 Diabetes: Ophthalmology Exam 12/28/2024 12/29/2023 Diabetes: Hemoglobin A1C 02/02/202511/02/ 025, 11/02/2024, 04/25/2024 Pneumococcal Vaccine: 50+ Years Completed 05/12/2022, 01/30/2019, 12/11/2016 Influenza Vaccine Completed 12/07/2024, , 01/05/2022, Additional history exists Hepatitis B Vaccine Aged Out No longe r eligible based on patient's age to complete this topic Insurance [employer] Medicare Care Teams Cigar Sorter Relationship Specialty Start Date End Date Gordon Shannon MD [address] [place] [phone] PCP - General Internal Medicine 01/31/25
== END 2025-02-12 11:15 | disposition home or self-care (01) ==
LOC: HO.HMGAL 11:13
PROVIDERS: PCP Internal Medicine; Visit Provider Registered Nurse Emergency
DX: J30.89 Other allergic rhinitis (principal)
CPT/HCPCS: 95117; 95165